=== PATIENT | male | born 1960 | race Caucasian/White ===

== ENCOUNTER 2016-12-20 19:13 | Inpatient (IN) | payer OTHER, MEDICAID ==
[~2016-12-20] VITALS: Ht 165.1 cm; Wt 65.5 kg
[2016-12-20 19:13] VITALS: BP_SYST 128
--- NOTE | 2016-12-20 19:13 | NUR ---
Patient to ER bed 3 to gown for evaluation. Side rails up. Report given to JESSICA ROBB.
--- NOTE | 2016-12-20 19:15 | NUR ---
Pt came by [facility] for fever that started at 1600 today. EMS states that his fever was 102.8 on scene. Pt's cognitive baseline is alert and not oriented to anything. Pt is mechanically vented via tracheostomy. Pt is hot, dry, and normal. Pt has two sores on the L foot. Lung sounds clear bilaterally. Will continue to monitor. No other injuries or mentioned/noted. No distress noted. Addendum: 12/21/16 at 0559 by ASHANTI Pt received 650 mg of tylenol at 1600 by [facility] nurses.
--- NOTE | 2016-12-20 19:35 | NUR ---
# 16 FR In and Out catheter with use of sterile technique. Immediate return of 100 ml dark yellow urine noted. Urine sample collected and sent to lab. Pt tolerated procedure well. Patient unable to toilet self.
--- NOTE | 2016-12-20 19:45 | NUR ---
# 20 gauge angiocath placed to R AC. Use of asceptic technique. Opsite placed over site. Blood return noted. Blood for lab drawn from site. Flushed with 10 cc of normal saline. No evidence of infiltration noted. Patient tolerated well.
--- NOTE | 2016-12-20 20:15 | NUR ---
JOVANNA Henriquez at bedside examining patient.
[2016-12-20] MEDS ORDERED: ACETAMINOPHEN 500 MG TABLET PO ONE (20:30)
[2016-12-20] MEDS ORDERED: NS 1000 ML BAG IV ONE (20:30)
[2016-12-20 20:56] LABS: BILIRUBIN,URINE 1+ (NEGATIVE); BLOOD, URINE NEGATIVE (NEGATIVE); CLARITY/URINE HAZY (CLEAR); COLOR,URINE AMBER (YELLOW); GLUCOSE,URINE NEGATIVE (NEGATIVE); KETONES,URINE TRACE (NEGATIVE); LEUKOCYTE ESTERASE ,URINE 1+ (NEGATIVE); NITRITE, URINE NEGATIVE (NEGATIVE); PROTEIN URINE 2+ (NEGATIVE); UROBILINOGEN,URINE 0.2 (0.2-1.0)
[2016-12-20] MEDS ORDERED: ACETAMINOPHEN 650 MG/20.3 ML UDC GT ONE (21:00)
[2016-12-20 21:01] LABS: BACTERIA,URINE MANY /HPF (None Seen); RBC,URINE 0-3 /HPF (0-3); WBC,URINE 80-100 /HPF (0-3)
[2016-12-20] MEDS ORDERED: ACETAMINOPHEN 650 MG/20.3 ML UDC ONE (21:05)
[2016-12-20 21:19] LABS: HEMATOCRIT 30.6 % (36-54); HEMOGLOBIN 10.2 g/dL (14.0-18.0); MEAN CORPUSCULAR HEMOGLOBIN 31 pg (27-31); MEAN CORPUSCULAR HGB CONC 33 % (32-36); MEAN CORPUSCULAR VOLUME 94 fL (79.0-98.0); PLATELET COUNT (AUTO) 525 K/uL (130-430); RED BLOOD CELL COUNT(AUTO) 3.27 MIL/uL (4.2-6.2); RED CELL DISTRIBUTION WIDTH 15.4 % (9.0-15.0); WHITE BLOOD COUNT (AUTO) 19.3 K/uL (4.8-10.8)
[2016-12-20 21:24] LABS: CREATININE 3.02 mg/dL (0.55-1.30)
[2016-12-20 21:25] LABS: INR 1.2 (0.80-1.20); PROTHROMBIN TIME 13.4 SECS (9.5-12.5)
[2016-12-20 21:42] LABS: BAND % (MANUAL) 5 % (0-6); BASOPHILS % (MANUAL) 0 % (0-2); EOSINOPHILS % (MANUAL) 1 % (0-7); LYMPHOCYTES % (MANUAL) 6 % (20-46); MONOCYTES % (MANUAL) 3 % (0-11)
[2016-12-20 21:44] LABS: ALBUMIN 1.9 g/dL (3.4-4.8)
[2016-12-20 21:48] LABS: POTASSIUM 2.8 mmol/L (3.5-5.1)
--- NOTE | 2016-12-20 21:51 | NUR ---
No adverse reactions noted. Will continue to monitor.
[2016-12-20] MEDS ORDERED: VANCOMYCIN HCL 1,000 MG in NS 250 ML IV ONE (22:00)
[2016-12-20] MEDS ORDERED: PIPERACILLIN/TAZO 3.375 GM in NS 50 ML IV ONE (22:00)
[2016-12-20] MEDS ORDERED: POTASSIUM CHLORIDE 20 MEQ/PKT PACKET GT ONE (22:15)
[2016-12-20] MEDS ORDERED: VANCOMYCIN HCL 1000 MG/VIAL IV ONE (22:28)
[2016-12-20] MEDS ORDERED: PIPERACILLIN/TAZOBACTAM 3.375 GM/VIAL (ZOSYN) IV ONE (22:30)
--- NOTE | 2016-12-20 22:45 | NUR ---
No adverse reactions noted. Will continue to monitor.
[2016-12-20] MEDS ORDERED: NACL 0.9% 1,000 ML IV SCH (22:56)
[2016-12-20] MEDS ORDERED: ACETAMINOPHEN 325 MG TABLET PO PRN (23:00)
[2016-12-20] MEDS ORDERED: ONDANSETRON HCL 4 MG/2 ML VIAL IVP PRN (23:00)
[2016-12-20] MEDS ORDERED: ZOLPIDEM TARTRATE 5 MG TABLET PO PRN (23:15)
[2016-12-20] MEDS ORDERED: POTASSIUM CHLORIDE 20 MEQ TAB.PRT.SR PO ONE (23:15)
[2016-12-20] MEDS ORDERED: BISACODYL 10 MG/SUPPOSITORY RC PRN (23:15)
[2016-12-20] MEDS ORDERED: POTASSIUM CHLORIDE 20 MEQ TAB.PRT.SR PO PRN (23:15)
[2016-12-20] MEDS ORDERED: SIMETHICONE 80 MG TAB.CHEW PO PRN (23:15)
--- NOTE | 2016-12-20 23:15 | NUR ---
No adverse reactions noted. Will continue to monitor.
[2016-12-20] MEDS ORDERED: IPRATROPIUM/ALBUTEROL SULFATE 3 ML AMPUL.NEB INH ONE (23:30)
--- NOTE | 2016-12-20 23:30 | NUR ---
Patient will be admitted to care of Dr. Townsend. Admitted to Telemetry unit. Will go to room 121A. Belongings list completed. Summary report printed. Report will be given at bedside.
[2016-12-21] VITALS (7 sets, daily range): BP systolic 118–139
--- NOTE | 2016-12-21 00:29 | NUR ---
ADMIT NOTE Received pt from ER to the floor with a diagnosis of aspiration pneumonia. Admission process initiated. patient is non verbal, came in on tracheostomy connected to vent. side rails up. lowest bed postion.
--- NOTE | 2016-12-21 01:35 | NUR ---
Pulmo Consultation Paged Reason for consultation: Asp PNA Was consult called: Yes Person who was notified: Hillary Consulting Physician: Dr Wharton Applications Project Manager Applications Project Manager Specialty: Pulmonology Ordered By: Dr Townsend
[2016-12-21 01:39] LABS: PHOSPHORUS 1.8 mg/dL (2.7-4.5); THYROID STIMULATING HORMONE 1.26 uIu/mL (0.34-4.82)
--- NOTE | 2016-12-21 01:50 | NUR ---
initial notes: pt is awake, alert. non verbal eyes open and turn his head when called by name. no sign of pain and distress. pt is admitted for aspiration pneumonia/ vital sign are with normal limit. no fever. pt has tracheostomy with portex 7 connected to [facility]. vent with setting of vt-400, fio2-40% ac-12 and peep-5. pt has ivf bolus ns going to right forearm gauge 20 infusing well. no infiltration. pt has wound on his right buttocks. discoloration on left heel and right big toe. pt has right chest permacath for HD- dressing is CDI. gtube is clamped on place with no residual. gtube side is clean and no erythema. pt came in with out jacob catheter. insert jacob catheter per md order and strict I and O. done aseptically and with yellow cloudy urine return. clean pt and gown change. reposition. kept comfortable. needs attended. mouth care done by cora coles. padded rails up for seizure precaution. will monitor. Addendum: 12/21/16 at 0412 by Giorgio Rowe RN TIDAL [id number]
[2016-12-21 01:58] LABS: FREE T4 (FREE THYROXINE) 0.9 ng/dl (0.8-1.5)
[2016-12-21] MEDS ORDERED: PIPERACILLIN/TAZOBACTAM 2.25 GM VIAL IV ONE (02:11)
--- NOTE | 2016-12-21 04:12 | NUR ---
NOTES: RESTING. NO DISTRESS. TOLERATING MECH VENT. WAKES UP WHEN REPOSITION. TRACHEOSTOMY SUCTION DONE. NEEDS ATTENDED. WILL MONITOR.
[2016-12-21] MEDS ORDERED: TYLL650 PO (05:35)
[2016-12-21] MEDS ORDERED: AMLO10TA88 GT (05:35)
[2016-12-21] MEDS ORDERED: DIPH25CA83 GT (05:48)
[2016-12-21] MEDS ORDERED: CAT.2 GT (05:48)
[2016-12-21] MEDS ORDERED: DULR10 RC (05:48)
[2016-12-21] MEDS ORDERED: ASCO500T20 GT (05:48)
[2016-12-21] MEDS ORDERED: SSNOVOLOG SUBCUT (05:49)
[2016-12-21] MEDS ORDERED: LEVE500T13 GT (05:49)
[2016-12-21] MEDS ORDERED: LISI-600 GT (05:49)
[2016-12-21] MEDS ORDERED: SENN-153 GT (05:49)
[2016-12-21] MEDS ORDERED: POLY17PO4 GT (05:49)
[2016-12-21] MEDS ORDERED: SEVE800T8 GT (05:49)
[2016-12-21] MEDS ORDERED: SSNPH SQ (05:49)
[2016-12-21] MEDS ORDERED: METO50TA7 GT (05:49)
[2016-12-21] MEDS ORDERED: FER300L PO (05:49)
[2016-12-21] MEDS ORDERED: ZIN220 GT (05:49)
[2016-12-21] MEDS: PIPERACILLIN/TAZOBACTAM 2.25 GM in NS 50 ML IV SCH ×3 (05:56→17:35)
--- NOTE | 2016-12-21 06:07 | NUR ---
notes: awake, alert. stable. not distress. mouth care done. reposition. am medication given. bladder scan-20cc. needs attended. call light in reach. will monitor.
[2016-12-21] MEDS: INSULIN REGULAR, HUMAN 100 UNITS/ML, 10 ML VIAL (novoLIN R) SUBCUT PRN ×4 (06:25→20:56)
--- NOTE | 2016-12-21 06:45 | NUR ---
CLOSING: pt is still resting. no acute distress. no pain. temp-99.5. stable v/s. still on vent with same setting. tolerating gtube with 0 residual. jacob catheter properly secure to pt thigh. needs attended. side rails up with padding. pt permacath on right is intact. will give bedside report to am brittney.
[2016-12-21] MEDS: IPRATROPIUM/ALBUTEROL SULFATE 3 ML AMPUL.NEB INH SCH ×5 (08:05→23:49)
[2016-12-21] MEDS: LACTULOSE 20 GM/30 ML UDC GT SCH ×2 (08:07→20:50)
[2016-12-21] MEDS: HEPARIN SODIUM,PORCINE 5000 UNITS/ML VIAL SUBCUT SCH ×2 (08:09→20:53)
--- NOTE | 2016-12-21 08:16 | NUR ---
initial notes: pt is awake, alert. non verbal eyes open and turn his head when called by name. no sign of pain and distress. vital sign are with normal limit. no fever. pt has tracheostomy with portex 7 connected to [facility]. vent with setting of vt-400, fio2-40% ac-12 and peep. gtube is clamped on place with no residual. gtube side is clean and no erythema. jacob catheter for strict I and O with yellow cloudy urine.padded rails up for seizure precaution. will continue monitoring.
[2016-12-21] MEDS ORDERED: DOCUSATE SODIUM 100 MG CAPSULE PO SCH (09:00)
[2016-12-21] MEDS ORDERED: BISACODYL 10 MG/SUPPOSITORY RC PRN (09:15)
[2016-12-21] MEDS ORDERED: cloNIDine HCL 0.2 MG TABLET GT SCH (09:15)
[2016-12-21] MEDS ORDERED: POLYETHYLENE GLYCOL 3350, 17 GM/ POWD.PACK GT PRN (09:15)
[2016-12-21] MEDS ORDERED: SENNOSIDES 8.6 MG TABLET GT PRN (09:15)
--- NOTE | 2016-12-21 09:38 | NUR ---
Consult was called Re:[facility] spoke with Mel from exchange Dr Handy is brood station manager for Dr Mcbride.
--- NOTE | 2016-12-21 09:40 | NUR ---
Nutrition Update Trung Scale 17 noted. Pt admitted for aspiration pneumonia. Diet: Diabetisource AC at 20 ml/hr, Free Water Flush: 200 ml q6 via GT BMI: 21.8 kg/m2 RD to follow per nutrition care standards.
--- NOTE | 2016-12-21 09:45 | NUR ---
MD DARELL PINEDA KIDNEY DR. LOZOYA AT THIS TIME AND HE SAY HE WILL SEE PT TODAY AND WILL ORDER DIALYSIS.
--- NOTE | 2016-12-21 09:57 | NUR ---
G/TUBE G/TUBE IS HOLD KNOW FOR U/S OF ABD.
--- NOTE | 2016-12-21 09:58 | NUR ---
Feliciano GOYAL LUNG IS MAKE ROUND AT THIS TIME ALL UP DATE IS GIVEN WE WILL FOLLOW UP ORDERS.
[2016-12-21] MEDS: ACETAMINOPHEN 650 MG/20.3 ML UDC GT PRN ×2 (11:40→17:45)
--- NOTE | 2016-12-21 13:00 | NUR ---
JESSICA GOYAL PT ON BED ALERT OX4, NO COMPLINE OF PAIN OR DISCOMFORT AT THIS TIME. Addendum: 12/21/16 at 1901 by Kathi Angulo RN WRONG PT
--- NOTE | 2016-12-21 15:00 | NUR ---
JESSICA ROUND PT ON BED ALERT OX4 NO SOB,OR DISTRESS NOTED AT THIS TIME. Addendum: 12/21/16 at 1901 by Kathi Angulo RN WRONG PT
--- NOTE | 2016-12-21 15:47 | NUR ---
Dietitian Recommendations * If/when medically appropriate, consider Diabetisource AC at 40 ml/hr (goal rate), Prosource daily, Free Water Flush: 200 ml q6 via GT Provides: 1212 kcal/day, 73 gm protein/day, and 1585 ml free water/day Meets: 92% of lower end of estimated caloric needs and and 103% of lower end of estimated protein needs LP, RD Please refer to Nutrition Assessment for details.
--- NOTE | 2016-12-21 18:56 | NUR ---
end of shift note Patient is resting in bed. no s/of SOB or distress noted at this time.call light is within reach and bed is in low position for Safety. Will endorse care to the night nurse.
--- NOTE | 2016-12-21 19:55 | NUR ---
Blood Culture Result Per Lab, blood culture drawn on 12/20/16 is positive for gram positive cocci in cluster. ID and Susceptibilities results are pending. Pt is currently on IV Zosyn. Will follow up with .
--- NOTE | 2016-12-21 20:00 | NUR ---
Initial PM Note Pt was received lying in bed awake and non-verbal. Pt has Tracheostomy #[address] and connected to Mechanical Ventilator with settings of AC 12, TV 450, FIO2 40% and PEEP 5. Pt is tolerating Vent settings well and no respiratory distress noted. No seizure activity noted and side rails are padded. Skin is warm and dry to touch. No signs or symptoms of hypoglycemia or hyperglycemia noted. GT Feeding of Diabetisource AC is infusing well with GT residual of 5ml. HOB is elevated 45 degrees to prevent aspiration. Ann cath to gravity drainage is patent with small amount of yellowish urine. Saline lock in RFA is patent and without any signs of infiltration. Rt chest Hemodialysis Permacath noted with the dressing dry and intact.
--- NOTE | 2016-12-21 20:45 | NUR ---
Hemodialysis and IV Vancomycin Noted new orders from Dr. Albert Handy for IV Vancomycin tonight and Hemodialysis tomorrow. Will print IV Vancomycin order for Occupational Therapist Home Based to obtain the medication from Pharmacy. Consent is needed for Hemodialysis and pt is unable to sign. Will follow up with pt's POA for consent.
[2016-12-21] MEDS: FERROUS SULFATE 300 MG/5 ML UDC PO SCH (20:50)
[2016-12-21] MEDS: ASCORBIC ACID 500 MG TABLET GT SCH (20:51)
[2016-12-21] MEDS: levETIRAcetam 500 MG TABLET GT SCH (20:51)
[2016-12-21] MEDS: NPH, HUMAN INSULIN ISOPHANE 100 UNITS/ ML 10 ML VIAL SQ SCH (20:54)
[2016-12-21] MEDS ORDERED: VANCOMYCIN HCL 1 GM/NS PREMIX 250 ML IV ONE (22:00)
--- NOTE | 2016-12-21 22:00 | NUR ---
Rounds Pt is resting quietly in bed at this time. Pt is tolerating Vent settings and GT Feeding. HOB remains elevated at 45 degrees. No seizure activity noted.
[2016-12-21] MEDS ORDERED: VANCOMYCIN HCL 1000 MG/VIAL IV ONE (22:26)
--- NOTE | 2016-12-22 | NUR ---
Rounds Pt is sleeping without any distress or seizure activity noted. Pt is tolerating GT Feeding and Vent settings well. Fall and safety precautions are in place.
[2016-12-22 00:14] VITALS: BP_SYST 127
[2016-12-22] MEDS: PIPERACILLIN/TAZOBACTAM 2.25 GM in NS 50 ML IV SCH ×2 (01:15→06:01)
--- NOTE | 2016-12-22 02:00 | NUR ---
Rounds Pt is sleeping comfortably in bed and no respiratory distress noted. Pt is tolerating GT Feeding and Vent settings well. Fall and safety precautions are in place.
[2016-12-22] MEDS: IPRATROPIUM/ALBUTEROL SULFATE 3 ML AMPUL.NEB INH SCH ×6 (03:51→23:04)
--- NOTE | 2016-12-22 04:00 | NUR ---
Rounds Pt is sleeping quietly in bed at this time. Pt is tolerating Vent settings and GT Feeding. HOB remains elevated at 45 degrees. No seizure activity noted.
--- NOTE | 2016-12-22 06:00 | NUR ---
G Tube Site Dressing Change G Tube site dressing change done. No leakage noted at the site. G Tube site was cleansed with normal saline and dry drain sponge dressing applied.
[2016-12-22 06:04] VITALS: BP_SYST 137
[2016-12-22 06:38] LABS: BASOPHILS # (AUTO) 0.1 K/uL (0.0-0.2); BASOPHILS % (AUTO) 0.3 % (0.0-2.0); EOSINOPHILS # (AUTO) 0.2 K/uL (0.0-0.4); HEMATOCRIT 27.3 % (36-54); LYMPHOCYTES % (AUTO) 5.1 % (20.5-51.5); MEAN CORPUSCULAR HEMOGLOBIN 31 pg (27-31); MEAN CORPUSCULAR HGB CONC 33 % (32-36); MEAN CORPUSCULAR VOLUME 93 fL (79.0-98.0); MONOCYTES % (AUTO) 4.9 % (1.7-9.3); NEUTROPHILS # (AUTO) 17.4 K/uL (1.8-7.7); PLATELET COUNT (AUTO) 519 K/uL (130-430); RED BLOOD CELL COUNT(AUTO) 2.93 MIL/uL (4.2-6.2); RED CELL DISTRIBUTION WIDTH 15.6 % (9.0-15.0); WHITE BLOOD COUNT (AUTO) 19.6 K/uL (4.8-10.8)
--- NOTE | 2016-12-22 06:46 | NUR ---
Closing Note Pt is awake and resting comfortably in bed. All pt's needs were attended to. No fall or injury noted this shift. No respiratory distress noted at this time. Pt is tolerating Vent settings and G Tube Feeding well. Will endorse to day shift nurse.
[2016-12-22 06:51] LABS: NEUTROPHILS % (AUTO) 88.7 % (40.0-70.0)
[2016-12-22 06:58] LABS: ALBUMIN 1.7 g/dL (3.4-4.8); CALCIUM 8.5 mg/dL (8.4-11.0); CREATININE 3.72 mg/dL (0.55-1.30); PHOSPHORUS 2.7 mg/dL (2.7-4.5); POTASSIUM 3.8 mmol/L (3.5-5.1); TOTAL BILIRUBIN 1.5 mg/dL (0.0-1.0)
--- NOTE | 2016-12-22 07:15 | NUR ---
Blood Culture Result Dr. Townsend was informed of blood culture result that showed gram positive cocci in clusters. He was also informed Dr. Handy ordered IV Vancomycin x1, which was administered last night. No new orders given by Dr. Bledsoe.
--- NOTE | 2016-12-22 07:45 | NUR ---
Consent for Hemodialysis RNs Silvia and Hans attempted to reach pt's POA for telephonic Hemodialysis consent since pt is unable to sign, but got a voice mail. RN Hans left a voice mail message for a call back. Roll Up Operator Nivia was informed of the Hemodialysis' consent status. Nivia advised giving her the Hemodialysis order after the consent has been signed.
--- NOTE | 2016-12-22 08:10 | NUR ---
AM Rounds Patient resting in bed, awake, alert and oriented x1, nonverbal, no signs of pain, assessment complete. Patient is on a trach to vent, AC 12, FIO2 40%, TV 450, PEEP 5, tolerating well, trach was suctioned with minimal secretions. ABG was done by the RT this morning, results pending. G Tube in place, with tube feeding, patient is tolerating well, aspiration precautions in place. IV site is patent and infusing well. Ann catheter in place draining to gravity. Patient is to have hemodialysis today, called POA for consent, no answer, voicemail was left for call back, will follow up as needed. Bed in lowest position, three side rails up, bed alarm on, bed close to nurse's station, fall, aspiration and seizure precautions in place.
[2016-12-22 08:12] VITALS: BP_SYST 137
--- NOTE | 2016-12-22 09:14 | NUR ---
Dr. Lozano S/w Dr. Lozano regarding sepsis protocol, no new orders at this time.
[2016-12-22] MEDS: LACTULOSE 20 GM/30 ML UDC GT SCH ×2 (09:41→22:04)
[2016-12-22] MEDS: ACETAMINOPHEN 650 MG/20.3 ML UDC GT PRN (09:41)
[2016-12-22] MEDS: FERROUS SULFATE 300 MG/5 ML UDC PO SCH ×2 (09:42→22:04)
[2016-12-22] MEDS: levETIRAcetam 500 MG TABLET GT SCH ×2 (09:42→22:04)
[2016-12-22] MEDS: amLODIPine BESYLATE 10 MG TABLET GT SCH (09:42)
[2016-12-22] MEDS: SEVELAMER HCL 800 MG TABLET GT SCH ×3 (09:43→17:30)
[2016-12-22] MEDS: LISINOPRIL 20 MG TABLET GT SCH (09:43)
[2016-12-22] MEDS: HEPARIN SODIUM,PORCINE 5000 UNITS/ML VIAL SUBCUT SCH ×2 (09:43→21:00)
[2016-12-22] MEDS: ASCORBIC ACID 500 MG TABLET GT SCH ×2 (09:43→22:04)
--- NOTE | 2016-12-22 09:45 | NUR ---
RN Rounds/Medication Patient resting in bed, awake, no signs of pain, educated on medications and potential side effects, G TUBE in place, no residual output at this time, tolerated medication administration well at this time. Tylenol also administered via G TUBE for temp of 100.4, will continue to monitor, cooling measures also provided. Will continue to monitor, bed in lowest position, three side rails up, bed alarm on, bed close to nurse's station, fall, aspiration and isolation precautions in place.
[2016-12-22] MEDS: NPH, HUMAN INSULIN ISOPHANE 100 UNITS/ ML 10 ML VIAL SQ SCH ×2 (09:46→22:03)
[2016-12-22 11:15] VITALS: BP_SYST 132
[2016-12-22] MEDS: INSULIN REGULAR, HUMAN 100 UNITS/ML, 10 ML VIAL (novoLIN R) SUBCUT PRN ×2 (11:46→22:01)
--- NOTE | 2016-12-22 11:46 | NUR ---
RN Rounds/Blood Glucose Patient resting in bed, awake, no signs of distress, no signs of pain. Blood glucose checked and insulin administered per MD orders. Bed in lowest position, three side rails up, bed alarm on, bed close to nurse's station, fall, aspiration and isolation precautions in place. Addendum: 12/22/16 at 1323 by Hans Bowser RN Temp now 100.0, cooling measures applied.
[2016-12-22 12:10] VITALS: BP_SYST 132
--- NOTE | 2016-12-22 12:20 | NUR ---
CONSULTATION PAGED REASON FOR CONSULTATION: HEPATOSPLENOMEGALY, ELEVATED BILI WAS CONSULT CALLED?: Y PERSON WHO WAS NOTIFIED: NAEEM CONSULTING PHYSICIAN: ANNE OLMSTEAD LEAF COVERER SPECIALTY: GASTROENTEROLOGY LEAF COVERER PHONE NUMBER: [phone] REQUESTING PHYSICIAN: SUSHIL RO
--- NOTE | 2016-12-22 12:25 | NUR ---
S/W Dr. Townsend regarding hemodialysis consent, unable to reach POA and the patient needs documentation that the dialysis is urgent, Dr. Townsend to follow up. Addendum: 12/22/16 at 1428 by Hans Bowser RN Order for Hemodialysis given to the assistant warehouse manager at 1230, assistant warehouse manager to follow up.
--- NOTE | 2016-12-22 14:24 | NUR ---
RN Rounds Patient resting in bed, eyes closed, breathing is even and unlabored, no signs of distress, bed in lowest position, three side rails up, bed alarm on, call light within reach, fall, isolation and aspiration precautions in place.
--- NOTE | 2016-12-22 15:54 | NUR ---
Wound care note 1) Right great toe Dry scab, no drainage, no odor Open to air 2) Right heel Blanchable redness, no open skin Floating and elevating the heel. 3)Right anterior lower leg Small, multiple dry scabs, intact, no odor, no drainage Open to air 4) Left heel Large dry scab, no drainage, no odor Open to air, floating and elevating the heel. 5) Right buttock 5 small skin tears. Non-intact skin. 100% red wound bed. Cleansed with normal saline and patted dry. Hydrogel applied to wound beds. Large sacral foam dressing over the right buttock. Turning and repositioning the patient every two hours and as needed. Dietary and wound care consults pending. Floating and elevating bilateral lower extremities/heels.
[2016-12-22 15:57] VITALS: BP_SYST 131
[2016-12-22] MEDS ORDERED: DEXTROSE 50% JECT 50 ML DISP.SYRIN IVP ONE (17:30)
--- NOTE | 2016-12-22 17:43 | NUR ---
Blood Glucose Assessed: 58, apple juice x1 given via G TUBE, no residual output at this time. Reassessed: 56, order for D50 IV push x1 received and given at this time. Will reassess blood glucose again.
--- NOTE | 2016-12-22 18:08 | NUR ---
Blood Glucose Reassessed 147 at this time after D50 IVP x1.
--- NOTE | 2016-12-22 18:26 | NUR ---
Closing note Patient resting in bed, awake, no signs of pain, no signs of distress, all needs met. Bed in lowest position, three side rails up, bed alarm on, bed close to nurse's station, fall, aspiration, seizure and isolation precautions in place. Will endorse report to NOC shift nurse.
--- NOTE | 2016-12-22 19:50 | NUR ---
ROUNDS PATIENT ON ONGOING HEMODIALYSIS AT THIS TIME, VITALS STABLE. NON VERBAL, ON TRACH TO VENT, SECRETIONS SUCTIONED NEEDED. ASSESSMENT DONE AND DOCUMENTED. SEE FLOWSHEET. NEEDS ATTENDED TO. SAFETY AND FALL PRECAUTION MEASURES IN PLACED.BED IN LOWEST POSITION. BED ALARM ON. WILL CONTINUE TO MONITOR.
--- NOTE | 2016-12-22 21:40 | NUR ---
MEDICATION DUE MEDICATIONS GIVEN ORDERED PER G TUBE, TOLERATED WELL. WILL CONTINUE TO MONITOR.
[2016-12-22] MEDS: MUPIROCIN 2% TOPICAL OINTMENT 22 GM TP SCH (22:05)
[2016-12-23] VITALS (7 sets, daily range): BP systolic 117–143
--- NOTE | 2016-12-23 | NUR ---
PATIENT RESTING: Patient resting quietly. No acute distress noted. Vital signs within normal range.
--- NOTE | 2016-12-23 02:15 | NUR ---
PATIENT RESTING: Patient resting quietly. No acute distress noted. Vital signs within normal range.
[2016-12-23] MEDS: IPRATROPIUM/ALBUTEROL SULFATE 3 ML AMPUL.NEB INH SCH ×5 (03:29→23:29)
--- NOTE | 2016-12-23 04:15 | NUR ---
PATIENT RESTING: Patient resting quietly. No acute distress noted. Vital signs within normal range.
[2016-12-23 06:17] LABS: BASOPHILS # (AUTO) 0.1 K/uL (0.0-0.2); BASOPHILS % (AUTO) 0.4 % (0.0-2.0); EOSINOPHILS # (AUTO) 0.7 K/uL (0.0-0.4); EOSINOPHILS % (AUTO) 4.2 % (0.0-4.0); HEMATOCRIT 25.5 % (36-54); HEMOGLOBIN 8.4 g/dL (14.0-18.0); LYMPHOCYTES # (AUTO) 0.8 K/uL (1.0-5.5); LYMPHOCYTES % (AUTO) 5.2 % (20.5-51.5); MEAN CORPUSCULAR HEMOGLOBIN 30 pg (27-31); MEAN CORPUSCULAR HGB CONC 33 % (32-36); MEAN CORPUSCULAR VOLUME 92 fL (79.0-98.0); MONOCYTES # (AUTO) 0.8 K/uL (0.0-1.0); MONOCYTES % (AUTO) 4.9 % (1.7-9.3); NEUTROPHILS # (AUTO) 13.6 K/uL (1.8-7.7); NEUTROPHILS % (AUTO) 85.3 % (40.0-70.0); PLATELET COUNT (AUTO) 537 K/uL (130-430); RED BLOOD CELL COUNT(AUTO) 2.77 MIL/uL (4.2-6.2); RED CELL DISTRIBUTION WIDTH 14.9 % (9.0-15.0)
--- NOTE | 2016-12-23 06:35 | NUR ---
CLOSING NOTES PATIENT RESTING COMFORTABLY AT THIS TIME, VITALS STABLE. ACCU CHECK DONE, BLOOD SUGAR 92 WITH NO INSULIN COVERAGE PER SLIDING SCALE. ALL NEEDS ATTENDED TO. SAFETY AND FALL MEASURES MAINTAINED. WILL CONTINUE TO MONITOR.
[2016-12-23 07:02] LABS: ALBUMIN 1.4 g/dL (3.4-4.8); CALCIUM 8.4 mg/dL (8.4-11.0); CREATININE 2.2 mg/dL (0.55-1.30); PHOSPHORUS 2.6 mg/dL (2.7-4.5); TOTAL BILIRUBIN 1.1 mg/dL (0.0-1.0)
[2016-12-23 07:24] LABS: POTASSIUM 2.9 mmol/L (3.5-5.1)
--- NOTE | 2016-12-23 07:30 | NUR ---
AM Rounds Patient resting in bed, awake, alert and oriented x1, nonverbal, no signs of pain, assessment complete. Patient is on a trach to vent, AC 12, FIO2 40%, TV 450, PEEP 5, tolerating well, trach was suctioned with minimal secretions. G Tube in place, with tube feeding, patient is tolerating well, aspiration precautions in place. IV site is patent and infusing well. Ann catheter in place draining to gravity. Temperature is 101.6 at this time, PUBLICATION SPECIALIST assisting patient to get cleaned and repositioned, cooling measures applied, will follow up with Tylenol via GT. Bed in lowest position, three side rails up, bed alarm on, bed close to nurse's station, fall, aspiration , isolation and seizure precautions in place.
[2016-12-23] MEDS: NPH, HUMAN INSULIN ISOPHANE 100 UNITS/ ML 10 ML VIAL SQ SCH (09:00)
--- NOTE | 2016-12-23 09:02 | NUR ---
Nancy Wright critical value K 2.90
[2016-12-23] MEDS ORDERED: POTASSIUM CHLORIDE 20 MEQ TAB.PRT.SR GT ONE (09:30)
[2016-12-23] MEDS: FERROUS SULFATE 300 MG/5 ML UDC PO SCH ×2 (09:37→22:20)
[2016-12-23] MEDS: LACTULOSE 20 GM/30 ML UDC GT SCH ×2 (09:38→22:20)
[2016-12-23] MEDS: SEVELAMER HCL 800 MG TABLET GT SCH ×3 (09:38→17:19)
[2016-12-23] MEDS: ACETAMINOPHEN 650 MG/20.3 ML UDC GT PRN (09:38)
[2016-12-23] MEDS: levETIRAcetam 500 MG TABLET GT SCH ×2 (09:39→22:21)
[2016-12-23] MEDS: ASCORBIC ACID 500 MG TABLET GT SCH ×2 (09:39→22:21)
[2016-12-23] MEDS: LISINOPRIL 20 MG TABLET GT SCH (09:39)
[2016-12-23] MEDS: amLODIPine BESYLATE 10 MG TABLET GT SCH (09:39)
[2016-12-23] MEDS: HEPARIN SODIUM,PORCINE 5000 UNITS/ML VIAL SUBCUT SCH ×2 (09:40→22:25)
--- NOTE | 2016-12-23 09:40 | NUR ---
RN Rounds/Medication Patient resting in bed, awake, no signs of pain, educated on medications and potential side effects, G TUBE in place, no residual output at this time, tolerated medication administration well at this time. Tylenol also administered via G TUBE for temp of 101.6, will continue to monitor, cooling measures also provided. Will continue to monitor, bed in lowest position, three side rails up, bed alarm on, bed close to nurse's station, fall, aspiration, seizure and isolation precautions in place.
[2016-12-23] MEDS: MUPIROCIN 2% TOPICAL OINTMENT 22 GM TP SCH ×2 (10:02→22:23)
--- NOTE | 2016-12-23 10:04 | NUR ---
S/W Dr. Townsend Updates given, potassium replacement orders received, informed regarding fevers, will follow up with any new orders.
--- NOTE | 2016-12-23 12:00 | NUR ---
Rounds I checked patients blood sugar (136) and patient was moved to a low air mattress. Patient also had a bowel movement and was cleaned and changed.
[2016-12-23] MEDS ORDERED: cloNIDine HCL 0.2 MG TABLET GT PRN (12:29)
[2016-12-23 14:00] LABS: T4 (THYROXINE) 4.4 ug/dL (4.5-12.0)
[2016-12-23 14:15] LABS: HEMOGLOBIN A1C 7.6 % (4.8-5.6)
--- NOTE | 2016-12-23 14:22 | NUR ---
S/w POA regarding consent for dialysis, stated that he will get in touch with the medical staff at [facility] so that they can fax over medical consent, will follow up as needed.
--- NOTE | 2016-12-23 14:30 | NUR ---
RN Rounds patient resting in bed, awake, no signs of pain, no signs of distress, aspiration, fall, seizure and isolation precautions in place, bed in lowest position, three side rails up, bed alarm on, bed close to nurse's station, will continue to monitor.
--- NOTE | 2016-12-23 15:48 | NUR ---
S/W [facility] Bread Jockey got information for the patient and she will page their medical staff and if they ok the consent she will fax over the consent, will follow up as needed.
--- NOTE | 2016-12-23 16:09 | NUR ---
PT off Unit The patient is off the unit and in stable condition with IV fluids held until return. Addendum: 12/23/16 at 1610 by Angela De La Cruz RN Wrong Patient
--- NOTE | 2016-12-23 16:18 | NUR ---
Wound care note 1) Right great toe Dry scab, no drainage, no odor Open to air 2) Right heel Blanchable redness, no open skin Floating and elevating the heel. 3)Right anterior lower leg Small, multiple dry scabs, intact, no odor, no drainage Open to air. 4) Left heel Large dry scab, no drainage, no odor Open to air, floating and elevating the heel. 5) Right buttock 5 small skin tears. Non-intact skin. 100% red wound bed. Cleansed with normal saline and patted dry. Barrier cream applied on jocelin wounds and over scrotal area. Large sacral foam dressing over the right buttock. Turning and repositioning the patient every two hours and as needed. Dietary and wound care consults pending. Floating and elevating bilateral lower extremities/heels.
--- NOTE | 2016-12-23 16:22 | NUR ---
Hemodialysis consent received via fax from [facility].
--- NOTE | 2016-12-23 17:30 | NUR ---
RN Rounds/Blood glucose patient resting in bed, no signs of pain, no signs of distress, evening medication administered via G TUBE, no residual output, blood glucose assessed, no insulin coverage needed per MD orders. Bed in lowest position, three side rails up, bed alarm on, fall, aspiration, seizure and isolation precautions in place.
--- NOTE | 2016-12-23 18:22 | NUR ---
Closing Note Patient resting in bed, awake, no signs of distress, no signs of pain. All needs met, will endorse report to NOC shift nurse, bed in lowest position, three side rails up, bed alarm on, bed close to nurse's station, fall, aspiration, seizure and isolation precautions.
--- NOTE | 2016-12-23 19:40 | NUR ---
Initial note patient in bed with eyes open, alert nonverbal. Stable not in distress. Ventilator connected. IV on RA. Seizure precautions in place. FC CYU. Bed lowest position. Pt incontinent of stool this time. Cleaned and changed patient. Continue to monitor.
[2016-12-23 21:51] LABS: TOTAL IRON BIND. CAPACITY 103 ug/dL (250-450)
[2016-12-23] MEDS ORDERED: VANCOMYCIN HCL 750 MG in NS 250 ML IV SCH (22:00)
--- NOTE | 2016-12-23 22:25 | NUR ---
Medication note Patient medication administered. Pt IV patent. Pt in bed, alert and awake, still nonverbal. No adverse effects noted. Safety measures in place. Seizure precaution in place. Bed lowest position. Continue to monitor.
[2016-12-23] MEDS: INSULIN REGULAR, HUMAN 100 UNITS/ML, 10 ML VIAL (novoLIN R) SUBCUT PRN (22:48)
[2016-12-24] VITALS (9 sets, daily range): BP systolic 119–134
--- NOTE | 2016-12-24 00:25 | NUR ---
Rounds patient in bed with eyes closed. No signs of respiratory distress noted. Seizure precautions in place. Bed in lowest posiiton. Continue to monitor
--- NOTE | 2016-12-24 02:08 | NUR ---
rounds pt in bed sleeping. no signs of acute distress or SOB noted. Fall and seizure precaution in place. Will continue to monitor
[2016-12-24] MEDS: IPRATROPIUM/ALBUTEROL SULFATE 3 ML AMPUL.NEB INH SCH ×6 (03:25→23:30)
--- NOTE | 2016-12-24 04:11 | NUR ---
Rounds Pt in bed sleeping. Vital signs taken all WNLs. Pt repositioned. Pt still on ventilator. G tube and IV in place. Pt safety measures upheld. Bed in lowest position, seizure and fall precautions in place. Pt chart reviewed and updates made on SBAR form. Continues to monitor.
--- NOTE | 2016-12-24 05:55 | NUR ---
Rounds Pt repositioned to left side. Pt diabetsource bag and tubings changed and flushed as ordered. Safety precautions in place. Continue to monitor
[2016-12-24] MEDS: INSULIN REGULAR, HUMAN 100 UNITS/ML, 10 ML VIAL (novoLIN R) SUBCUT PRN ×4 (06:23→22:00)
--- NOTE | 2016-12-24 06:27 | NUR ---
Closing note Pt slept comfortably this shift. Repositioned as ordered every two hours. G-tube feeding intact, with minimal residue of 5ml at start of shift. Pt continues on vent, no change in settings this shift. Mouth care carried out with each scheduled vent assessment. FC intact and flowing CYU. Accu check done as scheduled with appropriate insulin coverage. Towards end of shift Pt pulled out IV catheter, on left hand. new IV started. Bed rails padded . No seizure activity noted this shift. Fall and contact precautions in place this shift. Will pass report to next shift. Addendum: 12/24/16 at 0646 by Vicki Wells RN closing note IV Pt pulled IV towards end of shift. New IV 22 G started right FA
[2016-12-24 06:46] LABS: HEMATOCRIT 26.2 % (36-54); MEAN CORPUSCULAR HEMOGLOBIN 30 pg (27-31); MEAN CORPUSCULAR HGB CONC 32 % (32-36); MEAN CORPUSCULAR VOLUME 93 fL (79.0-98.0); PLATELET COUNT (AUTO) 632 K/uL (130-430); RED BLOOD CELL COUNT(AUTO) 2.81 MIL/uL (4.2-6.2); RED CELL DISTRIBUTION WIDTH 15.6 % (9.0-15.0); WHITE BLOOD COUNT (AUTO) 13.2 K/uL (4.8-10.8)
[2016-12-24 07:01] LABS: ALBUMIN 1.5 g/dL (3.4-4.8); CALCIUM 8.6 mg/dL (8.4-11.0); CREATININE 2.83 mg/dL (0.55-1.30); PHOSPHORUS 4.1 mg/dL (2.7-4.5); POTASSIUM 3.6 mmol/L (3.5-5.1); TOTAL BILIRUBIN 1.1 mg/dL (0.0-1.0)
[2016-12-24 07:15] LABS: HEMOGLOBIN 8.4 g/dL (14.0-18.0)
--- NOTE | 2016-12-24 08:08 | NUR ---
OPENING NOTE RECEIVED REPORT FROM NIGHT RN. PT IS RESTING COMFORTABLY IN BED. NO S/S OF DISTRESS OR SOB. PT IS AWAKE BUT NOT ALERT AND NONVERBAL. VITAL SIGNS WITHIN NORMAL LIMITS. ASSESSMENT COMPLETE. IV IS PATENT AND INFUSING. G-TUBE FEEDINGS IN PLACE. NO LEAKING OR DRAINAGE AT GTUBE SITE. PT ON VENTILATOR. SETTINGS ARE FIO2 40% TV 450 PEEP 5 AC 12. PT IS TOLERATING SETTINGS. EQUAL CHEST RISE NOTED. SEIZURE PRECAUTIONS IN PLACE. PT IN ISOLATION PRECAUTIONS. SAFETY PRECAUTIONS IN PLACE, BED IN LOWEST POSITION. WILL CONTINUE TO MONITOR.
--- NOTE | 2016-12-24 08:50 | NUR ---
CONSULTATION PAGED REASON FOR CONSULTATION: GRAM POS COCCI BACTEREMIA WAS CONSULT CALLED?: Y PERSON WHO WAS NOTIFIED: IMAN CONSULTING PHYSICIAN: MALIK FIGUEROA CUSTOMER SECURITY CLERK SPECIALTY: INFECTIOUS DISEASE CUSTOMER SECURITY CLERK PHONE NUMBER: [phone] REQUESTING PHYSICIAN: KIMBERLYN GAMING
--- NOTE | 2016-12-24 08:54 | NUR ---
CONSULTATION PAGED REASON FOR CONSULTATION: HEPATOSPLEENOMEGALY WAS CONSULT CALLED?: Y PERSON WHO WAS NOTIFIED: SUMIT CONSULTING PHYSICIAN: DAVID COONEY LOGISTICS PLANNING MANAGER SPECIALTY: INTERNAL MEDICINE LOGISTICS PLANNING MANAGER PHONE NUMBER: [phone] REQUESTING PHYSICIAN: MOUSTAPHA GEORGE JHUJHAR
[2016-12-24] MEDS: LISINOPRIL 20 MG TABLET GT SCH (09:00)
[2016-12-24] MEDS: HEPARIN SODIUM,PORCINE 5000 UNITS/ML VIAL SUBCUT SCH ×3 (09:00→22:03)
[2016-12-24] MEDS: amLODIPine BESYLATE 10 MG TABLET GT SCH (09:00)
[2016-12-24] MEDS: LACTULOSE 20 GM/30 ML UDC GT SCH ×2 (09:15→21:59)
[2016-12-24] MEDS: ASCORBIC ACID 500 MG TABLET GT SCH ×2 (09:16→22:45)
[2016-12-24] MEDS: FERROUS SULFATE 300 MG/5 ML UDC PO SCH ×2 (09:16→21:58)
[2016-12-24] MEDS: levETIRAcetam 500 MG TABLET GT SCH ×2 (09:16→21:59)
[2016-12-24] MEDS: MUPIROCIN 2% TOPICAL OINTMENT 22 GM TP SCH ×2 (09:17→22:45)
[2016-12-24] MEDS: SEVELAMER HCL 800 MG TABLET GT SCH ×3 (09:19→17:10)
--- NOTE | 2016-12-24 10:00 | NUR ---
ROUNDS PT RECEIVING DIALYSIS. MEDS GIVEN. PT IN NO DISTRESS OR SOB. BED IN LOWEST POSITION. WILL CONTINUE TO MONITOR CLOSELY.
[2016-12-24 10:16] LABS: HEPATITIS B SURFACE AG Negative (Negative); HEPATITIS C VIRUS AB <0.1 s/co ratio (0.0-0.9)
[2016-12-24 10:25] LABS: ATYPICAL LYMPHOCYTES % 0 % (0-0); BAND % (MANUAL) 2 % (0-6); BASOPHILS % (MANUAL) 0 % (0-2); EOSINOPHILS % (MANUAL) 4 % (0-7); LYMPHOCYTES % (MANUAL) 11 % (20-46); MONOCYTES % (MANUAL) 7 % (0-11); MYELOCYTES % 2 % (0-0)
--- NOTE | 2016-12-24 10:34 | NUR ---
DISCHARGE PLANNING Faxed SNF referral to [phone]. Spoke with Gerardo in admitting who was made aware of patient currently [facility] status. DCP will follow up on [facility] bed availability. Addendum: 12/24/16 at 1414 by Sylvia Palumbo DP spoke with Gerardo in admitting at [facility] patient assigned to [facility] room 111A RN to report [phone] bed available anytime. Any ambulance can be arranged. Placed transportation packet in nurses station. Pending discharge order.
--- NOTE | 2016-12-24 11:58 | NUR ---
ROUNDS PT CURRENTLY ON DIALYSIS. NEW ORDER FOR ROCEPHIN TO BE ADMINISTERED. PT HAS NO SIGNS OF DISTRESS OR SOB. BED IN LOWEST POSITION. WILL CONTINUE TO MONITOR.
[2016-12-24] MEDS: cefTRIAXone 1 GM in D5W 50 ML IV SCH (12:51)
--- NOTE | 2016-12-24 13:41 | NUR ---
ROUNDS PT CURRENTLY RESTING IN BED. MEDS GIVEN, CURRENTLY RECEIVING ROCEPHIN. PT HAD PRODUCTIVE COUGH, TRACH SUCTIONED. PT IN NO DISTRESS OR SOB. BED IN LOWEST POSITION. WILL CONTINUE TO MONITOR.
--- NOTE | 2016-12-24 14:34 | NUR ---
Nutrition F/U Admitting Diagnosis Aspiration pneumonia Reviewed Pertinent Medical/Surgical Hx Medical Record Reviewed Pertinent Medical/Surgical Hx Patient Medical History Comment: DM, HTN, ESRD w/ HD, chronic respiratory failure, CVA, muscle weakness, unsteady gait per MD notes Subjective Information Pt seen resting in bed at time of RD visit concluding a procedure. Pt seen +trach to vent, TF seen infusing at 20ml/hr. Pt appeared thin for short stature. Pt unable to engage in RD verbal interview. Per EMR, TF Intakes: 480 mL 12/23/16 Output: 150mL; BM x2 (12/23/16) Pt is not yet meeting optimal nutritional needs. Current TF regimen provides 576 kcal/day, 29 gm protein/day, and 1193 ml free water/day. This meets 44% of lower end of estimated caloric needs and 41% of lower end of estimated protein needs. Pt is not appropriate for nutrition education. Current Diet Order/Nutrition Support Diabetisource AC at 20 ml/hr, Free Water Flush: 200 ml q6h via GT Patient/Significant Other Unable To Verbalize Education Provided Not Indicated Pertinent Medications Reviewed Pertinent Labs Reviewed Height (Feet) 5 feet Height (Inches) 5.00 inches Weight (Pounds) 130 pounds Weight (Calculated Kilograms) 58.182391 kilograms Patient Weight 58.967 kg Body Mass Index 21.63 kg/m2 %IBW 95 [place]/Adjusted Body Weight IBW: 136 lb, 62 kg Weight Status Appropriate Skin Integrity Comment: Trung scale: 13; per nursing notes, anterior lower R leg: scratech; L heel: discoloration; medial R toe: discoloration; R buttocks: wound Estimated Energy Expenditure (kcals/day) 3976-0319 kcal/day (BEE x 1-1.2 CBW for maintenance) Estimated Protein Required (g/day) 71-83 gm/day (1.2-1.4 gm/kg CBW for ESRD on HD) Estimated Fluid Required (l/day) Per MD (ESRD) Problem/Etiology/Signs/Symptoms Inadequate enteral nutrition related to maintenance as evidenced by held TF, and need for GI workups. Expected Outcomes/Goals - Monitor provision of enteral nutrition w/ goal of pt tolerance and meeting at least 75% of estimated nutritional needs, labs trending WNL, normal GI function, and skin integrity/wt maintenance Dietitian Recommendations * If/when medically appropriate, consider Diabetisource AC at 40 ml/hr (goal rate), Prosource daily, Free Water Flush: 200 ml q6 via GT Provides: 1212 kcal/day, 73 gm protein/day, and 1585 ml free water/day Meets: 92% of lower end of estimated caloric needs and and 103% of lower end of estimated protein needs Follow Up High Risk: F/U in 2-3days Follow Up By Dec 26, 2016 Alert Not Indicated
--- NOTE | 2016-12-24 16:00 | NUR ---
ROUNDS PT STABLE, RESTING IN BED. SACRAL WOUNDS CLEANED WITH DRESSING DRY AND INTACT. HEEL LIFT BOOTS APPLIED TO BOTH FEET. PT HAS NO SIGNS OF DISTRESS OR SOB. BED IN LOWEST POSITION. WILL CONTINUE TO MONITOR.
--- NOTE | 2016-12-24 16:00 | NUR ---
WOUND EVALUATION: Wound Consult received from Dr. Vizcaino. Thank you, Dr. Vizcaino, for the consult. Patient received in a Vanessa Bed with an Isoflex ANGELA mattress with low air loss therapy initiated, awake, alert, and confused. Patient is unable to turn independently. Trung Score is a 12. Past Medical History: Diabetes Mellitus, Hypertension, end-stage renal disease with hemodialysis, chronic respiratory failure, history of CVA, muscle weakness, unsteady gait. Recent Labs: WBC 13.2, RBC 2.81, hemoglobin 8.4, hematocrit 26.2, platelets 632, chloride 95, BUN 54, creatinine 2.83, GFR 25, glucose 247 magnesium 2.5, alkaline phosphatase 1008, albumin 1.5, PT 13.4, PTT 24.0. Intrinsic factors that delay wound healing: Diabetes Mellitus, end-stage renal disease with hemodialysis, chronic respiratory failure. Extrinsic factors that delay wound healing: Decreased mobility. Microbiology: Blood culture 2 in progress. MRSA screen results positive. Urine culture positive for Escherichia coli. Wound Assessment: 1. Right Buttock: Multiple wounds, probably self inflected from patient scratching himself, present on admission. Wound bed is 100% pink tissue. No odor, small sanguineous drainage. Measures 0.9 cm x 1.5 cm. 2. Right Buttock, medial to wound 1: Wound, present on admission. Wound bed is 100% yellow tissue. No odor, no drainage. Measures 2.8 cm x 6.6 cm. Recommend: Cleanse wounds with normal saline. Pat dry. Apply moisture barrier cream to wounds and jocelin-wounds. Apply hydrogel to any portion of wounds not covered by moisture barrier cream. Cover with alginate dressing, then foam dressing. Secure with transparent dressings. 3. Left posterior Heel: Chronic unstageable pressure ulcer, present on admission. Wound bed is unseen, has 100% black eschar. Dry, stable. No odor no drainage. Measures 2.5 cm x 3.0 cm. 4. Right Heel: Legible redness, present on admission. Recommend: Dressings needed. Elevate, offload and float bilateral heels with heel lift boots at all times. Cut out in side of boots if necessary if unable to float heel inside of boots. Also recommend: Reposition patient every 2 hours with pillow support and off-load pressure areas with pillows for pressure re-distribution. Offload, elevate and float bilateral heels with pillows. Perform skin care and monitor skin integrity Q shift. Use moisture barrier cream on buttocks and other moisture susceptible areas QID and as needed for soiling. Place patient on a low air-loss mattress.
[2016-12-24] MEDS: EPOETIN ALFA 3,000 UNITS/ML VIAL SUBCUT SCH (17:09)
[2016-12-24] MEDS ORDERED: *CUBICIN 6 MG/KG Q48H/PHARMACY XX PRN (17:30)
[2016-12-24] MEDS ORDERED: DAPTOmycin 500 MG in NS 50 ML IV SCH (18:00)
--- NOTE | 2016-12-24 18:26 | NUR ---
CLOSING PT RESTING IN BED. NO S/S OF DISTRESS OR SOB. ORAL CARE GIVEN. IV INTACT AND PATENT. QIU DRAINING TO GRAVITY. G-TUBE IN PLACE WITH NO LEAKAGE. DRESSING IN PLACE FOR SACRAL WOUNDS. HEEL BOOTS ON BOTH LEGS. PT REMAINED ITCHY THROUGHOUT SHIFT. BED IN LOWEST POSITION. ALL NEEDS MET DURING SHIFT. WILL GIVE REPORT TO NIGHT NURSE. Addendum: 12/24/16 at 1932 by Nicolas Emanuel RN ANTIBIOTIC ENDORSED TO VICE PRESIDENT SAFETY
[2016-12-24] MEDS: DAPTOmycin 350 MG in NS 50 ML IV SCH (19:59)
--- NOTE | 2016-12-24 20:05 | NUR ---
Rounds Received patient lying in bed resting, no s/s of any pain, no acute distress noted. Patient non verbal, awake. Vent dependent, RT at the bedside giving breathing tx. IV site checked intact and patent. Side rail padded in place for seizure precaution. Heel left boots in place. Ann cath to gravity yellow urine. GT feeding infusing well. Patient on Air mattress. Call light within reach.
--- NOTE | 2016-12-24 22:00 | NUR ---
Medication First dose of Cubicin IVPB completed no adverse reaction noted. will continue to monitor.
--- NOTE | 2016-12-24 22:50 | NUR ---
GT residual checked GT residual checked 80ml noted. HOB elevated. will monitor. GT feeding rate at 20ml/hour per order. will monitor.
--- NOTE | 2016-12-24 23:20 | NUR ---
Notes Informed Dr Vizcaino regarding severe sepsis risk screen and elevated heart rate of 125 no order received see sepsis screen notes for more info. Charge nurse made aware.
[2016-12-25] VITALS (10 sets, daily range): BP systolic 128–147
--- NOTE | 2016-12-25 | NUR ---
Flushed GT with H2O 200ml per order
--- NOTE | 2016-12-25 00:38 | NUR ---
Notes Temp 99.1 cooling measure provided removed heavy blanket. will monitor.
--- NOTE | 2016-12-25 03:01 | NUR ---
GT site care GT site care done changed dressing to GT site applied 4x4 drain gauze and secured with paper tape, no redness or drainage noted.
[2016-12-25] MEDS: IPRATROPIUM/ALBUTEROL SULFATE 3 ML AMPUL.NEB INH SCH ×6 (03:08→23:32)
--- NOTE | 2016-12-25 05:01 | NUR ---
Rounds Patient resting quietly, call light within reach.
[2016-12-25 05:12] LABS: HEPATITIS A AB, IgM Negative (Negative); HEPATITIS B CORE AB, IgM Negative (Negative); HEPATITIS B SURFACE AG Negative (Negative)
[2016-12-25] MEDS: ACETAMINOPHEN 650 MG/20.3 ML UDC GT PRN (05:32)
--- NOTE | 2016-12-25 05:41 | NUR ---
Notes s/s of pain noted, temp 99.4 Tylenol given and cooling measure provided. Heart rate 133 will monitor. Charge nurse made aware.
--- NOTE | 2016-12-25 06:04 | NUR ---
Flushed GT with H2O 200ml per order
[2016-12-25] MEDS: INSULIN REGULAR, HUMAN 100 UNITS/ML, 10 ML VIAL (novoLIN R) SUBCUT PRN ×4 (06:22→21:48)
[2016-12-25 06:35] LABS: BASOPHILS % (AUTO) 0.3 % (0.0-2.0); EOSINOPHILS # (AUTO) 0.5 K/uL (0.0-0.4); NEUTROPHILS # (AUTO) 14.4 K/uL (1.8-7.7)
[2016-12-25 06:42] LABS: EOSINOPHILS % (AUTO) 2.8 % (0.0-4.0); HEMATOCRIT 27.4 % (36-54); HEMOGLOBIN 8.6 g/dL (14.0-18.0); LYMPHOCYTES # (AUTO) 0.8 K/uL (1.0-5.5); LYMPHOCYTES % (AUTO) 4.8 % (20.5-51.5); MEAN CORPUSCULAR HEMOGLOBIN 29 pg (27-31); MEAN CORPUSCULAR HGB CONC 32 % (32-36); MEAN CORPUSCULAR VOLUME 93 fL (79.0-98.0); MONOCYTES # (AUTO) 0.7 K/uL (0.0-1.0); MONOCYTES % (AUTO) 4.5 % (1.7-9.3); NEUTROPHILS % (AUTO) 87.6 % (40.0-70.0); RED BLOOD CELL COUNT(AUTO) 2.96 MIL/uL (4.2-6.2); RED CELL DISTRIBUTION WIDTH 15.2 % (9.0-15.0)
[2016-12-25] MEDS: MORPHINE 2 MG/ML INJ. SYRINGE IVP PRN (06:42)
[2016-12-25 07:01] LABS: ALBUMIN 1.6 g/dL (3.4-4.8); BILIRUBIN,DIRECT 0.9 mg/dL (0.0-0.3); CALCIUM 9.1 mg/dL (8.4-11.0); CREATININE 2.17 mg/dL (0.55-1.30); POTASSIUM 3.4 mmol/L (3.5-5.1); TOTAL BILIRUBIN 1.2 mg/dL (0.0-1.0)
[2016-12-25 07:03] LABS: WHITE BLOOD COUNT (AUTO) 16.4 K/uL (4.8-10.8)
[2016-12-25 07:04] LABS: PLATELET COUNT (AUTO) 777 K/uL (130-430)
--- NOTE | 2016-12-25 07:10 | NUR ---
Notes Called Dr Vizcaino regarding critical lab result and elevated heart rate, no ans, answering machine only left a message. Awaiting for MD to call back.
--- NOTE | 2016-12-25 07:20 | NUR ---
Dr Carrillo Vizcaino called back informed regarding critical platelet 777 and also informed MD about elevated heart rate of 133 new order received to give NS 500ml bolus. Charge nurse made aware and Endorsed to on coming nurse.
--- NOTE | 2016-12-25 07:30 | NUR ---
OPENING NOTE RECEIVED PATIENT REPORT FROM RUSTIC TERRAZZO SETTER NURSE. NOTIFIED OF CRITICAL LAB VALUE WELL TACHYCARDIA AT 131. PHYSICIAN HAS ALREADY BEEN NOTIFIED, BOLUS OF 500ML ORDERED. BEGAN BY RUSTIC TERRAZZO SETTER NURSE. HR 121 AFTER BOLUS COMPLETED. PATIENT RECEIVED MORPHINE FOR PAIN MANAGEMENT BY RUSTIC TERRAZZO SETTER NURSE. PATIENT IS TRACH TO VENT. SETTINGS: 12/450/PEEP 5; 40%FI02. PATIENT TOLERATING VENT WELL. PATIENT HAS TACHYPNEA AT 32. PATIENT HAS TUBE FEEDING RUNNING AT 20ML. RESIDUAL AT 10ML. PATIENT HAS HEEL LIFT BOOTS AND Q2 TURNS. PATIENT HAS SEIZURE PRECAUTIONS IN PLACE, AND QIU DRAINING TO GRAVITY WITH DARK YELLOW URINE. PATIENTS BED IN LOWEST POSITION, CALL LIGHT WITHIN REACH, AND SIDE RAILS ARE UP FOR SAFETY. PATIENT IS NON VERBAL AT THIS TIME.
[2016-12-25] MEDS ORDERED: NS 500 ML IV ONE (08:00)
[2016-12-25] MEDS: SEVELAMER HCL 800 MG TABLET GT SCH ×3 (08:10→17:20)
[2016-12-25] MEDS: LACTULOSE 20 GM/30 ML UDC GT SCH ×2 (08:13→21:23)
[2016-12-25] MEDS: FERROUS SULFATE 300 MG/5 ML UDC PO SCH ×2 (08:13→21:24)
[2016-12-25] MEDS: ASCORBIC ACID 500 MG TABLET GT SCH ×2 (08:14→21:24)
[2016-12-25] MEDS: levETIRAcetam 500 MG TABLET GT SCH ×2 (08:14→21:24)
--- NOTE | 2016-12-25 08:15 | NUR ---
INITIAL NOTES: The patient is resting comfortably in bed and is showing no signs or symptoms of pain or distress. No seizure, hematuria, vomiting or fevers.AOX1 .Tracheostomy intact.ventilate machine in place.Lungs sounds are clear to auscultation.Abdomen are soft,no tenderness ,G-tube in place.Ne edema at extremities.Skin is No rashes, No breakdown.Instruct to the pt to call if needs help. call light within reach.
[2016-12-25] MEDS: amLODIPine BESYLATE 10 MG TABLET GT SCH (08:18)
[2016-12-25] MEDS: LISINOPRIL 20 MG TABLET GT SCH (08:18)
[2016-12-25] MEDS: MUPIROCIN 2% TOPICAL OINTMENT 22 GM TP SCH ×2 (08:19→21:54)
[2016-12-25] MEDS: HEPARIN SODIUM,PORCINE 5000 UNITS/ML VIAL SUBCUT SCH ×2 (08:20→21:28)
--- NOTE | 2016-12-25 10:18 | NUR ---
1000 NOTE PATIENT IS RESTING COMFORTABLY, NO COMPLAINTS OF PAIN PER WHITEHEAD SOLANO SCALE. PATIENT IS NON VERBAL AT THIS TIME. PATIENT IS TRACH TO VENT. SETTINGS: 12/450/PEEP 5; 40%FI02. PATIENT TOLERATING VENT WELL. PATIENT HAS TACHYPNEA AT 32. PATIENT HAS TUBE FEEDING RUNNING AT 20ML. RESIDUAL AT 10ML. PATIENT HAS HEEL LIFT BOOTS AND Q2 TURNS. PATIENT HAS SEIZURE PRECAUTIONS IN PLACE, AND QIU DRAINING TO GRAVITY WITH DARK YELLOW URINE. PATIENTS BED IN LOWEST POSITION, CALL LIGHT WITHIN REACH, AND SIDE RAILS ARE UP FOR SAFETY. PATIENT HAS NO NOTABLE SIGNS OF DISTRESS AT THIS TIME. WILL CONTINUE TO MONITOR PATIENT FOR CHANGES IN STATUS.
[2016-12-25 11:07] LABS: AFP, TUMOR MARKER 1.5 ng/mL (0.0-8.3)
[2016-12-25] MEDS: cefTRIAXone 1 GM in D5W 50 ML IV SCH (11:07)
--- NOTE | 2016-12-25 12:54 | NUR ---
DISCHARGE PLANNING DC Planning order for [facility] evaluation. Faxed DC Planning order to [phone]. Notified [facility] Will follow up. Addendum: 12/25/16 at 1519 by Sylvia Palumbo DP Spoke with [facility] Marie patient was financially denied. Spoke with Gerardo at [facility] who was made aware of discharge plan for possibly 12/27. DC will keep Gerardo at [facility] informed of patient discharge back to [facility].
--- NOTE | 2016-12-25 13:01 | NUR ---
1200 NOTE PATIENT IS RESTING COMFORTABLY, NO COMPLAINTS OF PAIN PER WHITEHEAD SOLANO SCALE. PATIENT IS NON VERBAL AT THIS TIME. PATIENT IS TRACH TO VENT. SETTINGS: 12/450/PEEP 5; 40%FI02. PATIENT TOLERATING VENT WELL. PATIENT HAS TACHYPNEA AT 32. PATIENT HAS TUBE FEEDING RUNNING AT 20ML. RESIDUAL AT 10ML. FREE WATER FLUSH OF 200 GIVEN. PATIENT HAS HEEL LIFT BOOTS AND Q2 TURNS. PATIENT HAS SEIZURE PRECAUTIONS IN PLACE, AND QIU DRAINING TO GRAVITY WITH DARK YELLOW URINE. PATIENTS BED IN LOWEST POSITION, CALL LIGHT WITHIN REACH, AND SIDE RAILS ARE UP FOR SAFETY. PATIENT HAS NO NOTABLE SIGNS OF DISTRESS AT THIS TIME. WILL CONTINUE TO MONITOR PATIENT FOR CHANGES IN STATUS. HEMODIALYSIS ORDER WAS PRINTED AND PLACED IN HOUSE SUPERVISORS OFFICE.
--- NOTE | 2016-12-25 13:52 | NUR ---
Case mgt: Discussed POC with Dr. Vizcaino, Dr. Catalan--per Dr. Vizcaino, pt needs new permacath placement per Dr. Laurent. I called Dr. You per order and notified him of the consult. I called nurse Smith to update on new order and find out who is [facility] for consent.
--- NOTE | 2016-12-25 13:58 | NUR ---
CONSULT FOR FUNMI SPOKE WITH DR. CHOUDHARY REGARDING CONSULT. PERMACATH PLACEMENT. ORDER FOR "CONSENT FOR PLACEMENT OF NEW PERMACATH UNDER ULTRASOUND AND FLUOROSCOPY. NPO AFTER MIDNIGHT. MD AWARE PATIENT IS ON TUBE FEEDING. ORDERS ENTERED BY JESSICA.
--- NOTE | 2016-12-25 14:14 | NUR ---
NOTE CALLED NUMBER OF "GUARANTOR" ON FACE SHEET. [phone]. I WAS GIVEN THE PHONE NUMBER FOR INSTRUMENT SHOP SUPERVISOR FOR THE PATIENT, JENA GRUBER. [phone]. LEFT MESSAGE ON PHONE TO RETURN MY CALL FOR CONSENT AUTHORIZATION. GIVEN CALL BACK NUMBER AND NAME TO ASK FOR. WILL BE AWAITING HIS CALL.
--- NOTE | 2016-12-25 14:18 | NUR ---
NOTE: JENA GRUBER RETURNED PHONE CALL PROMPTLY. SHE STATED THAT SHE WILL GET THE PAPERWORK TOGETHER AND SENT TO THE MEDICAL TEAM FOR REVIEW. PHONE NUMBER WAS GIVEN FOR ONGOING CONTACT DURING THE PROCESSES, AND OKAY TO CALL IF QUESTIONS OR CONCERNS ARISE. WILL CONTINUE TO FOLLOW UP. SPOKE WITH RICKIE GETTER OPERATOR AND SHE WAS NOTIFIED THAT I SPOKE WITH THE MANAGER HOSPICE JENA REGARDING CONSENT.
--- NOTE | 2016-12-25 14:39 | NUR ---
JOJO PER PHARMACY, SPOKE WITH PHARMACIST JOJO PER PHARMACY, SPOKE WITH PHARMACIST MARIAM REGARDING ORDERS FOR VANCO PER PHARMACY. INFORMATION REGARDING PATIENTS HEIGHT AND WEIGHT GIVEN. HE STATED HE WILL LOOK AT THE PATIENTS CHART.
--- NOTE | 2016-12-25 15:10 | NUR ---
PHARMACY SPOKE WITH MARIAM VIA PHONE. PATIENT DOES NOT NEED TO BE ON VANCO, PATIENT IS ALREADY ON CUBACIN.
[2016-12-25 15:15] LABS: ANTI NUCLEAR AB WITH REFLEX Negative (Negative)
--- NOTE | 2016-12-25 16:22 | NUR ---
1600 NOTE PATIENT IS RESTING COMFORTABLY, NO COMPLAINTS OF PAIN PER WHITEHEAD SOLANO SCALE. PATIENT IS NON VERBAL AT THIS TIME. PATIENT IS TRACH TO VENT. SETTINGS: 12/450/PEEP 5; 40%FI02. PATIENT TOLERATING VENT WELL. PATIENT HAS TACHYPNEA AT 29. PATIENT HAS TUBE FEEDING RUNNING AT 20ML. RESIDUAL AT 10ML. PATIENT HAS HEEL LIFT BOOTS AND Q2 TURNS. PATIENT HAS SEIZURE PRECAUTIONS IN PLACE, AND QIU DRAINING TO GRAVITY WITH DARK YELLOW URINE. PATIENTS BED IN LOWEST POSITION, CALL LIGHT WITHIN REACH, AND SIDE RAILS ARE UP FOR SAFETY. PATIENT HAS NO NOTABLE SIGNS OF DISTRESS AT THIS TIME. WILL CONTINUE TO MONITOR PATIENT FOR CHANGES IN STATUS.
--- NOTE | 2016-12-25 18:44 | NUR ---
1800/CLOSING NOTE AWAITING TO GIVE REPORT TO FOUR H CLUB AGENT NURSE. PATIENT IS RESTING COMFORTABLY, NO COMPLAINTS OF PAIN PER WHITEHEAD SOLANO SCALE. PATIENT IS NON VERBAL AT THIS TIME. PATIENT IS TRACH TO VENT. SETTINGS: 12/450/PEEP 5; 40%FI02. PATIENT TOLERATING VENT WELL. PATIENT HAS TACHYPNEA AT 31. PATIENT HAS TUBE FEEDING RUNNING AT 20ML. RESIDUAL AT 10ML. FREE WATER FLUSH OF 200 GIVEN. PATIENT HAS HEEL LIFT BOOTS AND Q2 TURNS. PATIENT HAS SEIZURE PRECAUTIONS IN PLACE, AND QIU DRAINING TO GRAVITY WITH DARK YELLOW URINE. PATIENTS BED IN LOWEST POSITION, CALL LIGHT WITHIN REACH, AND SIDE RAILS ARE UP FOR SAFETY. PATIENT HAS NO NOTABLE SIGNS OF DISTRESS AT THIS TIME. WILL CONTINUE TO MONITOR PATIENT FOR CHANGES IN STATUS.
--- NOTE | 2016-12-25 22:00 | NUR ---
Blood sugar: medication is given,blood sugar is 234,with 4 units insulin coverage.
[2016-12-26] VITALS (8 sets, daily range): BP systolic 116–141
--- NOTE | 2016-12-26 00:05 | NUR ---
RN rounds: PT is resting ,two rails up.bed alarm on.continue monitor.
--- NOTE | 2016-12-26 02:12 | NUR ---
SINUSES TACHYCARDIA Tech report the pt heart rate is 200pbm.RN and CHARGE NURSE running to the room.reposition the pt.put the new quality assurance monitor body on. re-check the v/s,the heart rate become 120pbm.continue monitor.
[2016-12-26] MEDS: IPRATROPIUM/ALBUTEROL SULFATE 3 ML AMPUL.NEB INH SCH ×6 (03:00→23:13)
[2016-12-26 05:08] LABS: CERULOPLASMIN 37.2 mg/dL (16.0-31.0)
[2016-12-26 06:27] LABS: BASOPHILS # (AUTO) 0.1 K/uL (0.0-0.2); EOSINOPHILS # (AUTO) 0.5 K/uL (0.0-0.4); HEMATOCRIT 25.1 % (36-54); MEAN CORPUSCULAR VOLUME 93 fL (79.0-98.0)
[2016-12-26 06:39] LABS: CALCIUM 8.8 mg/dL (8.4-11.0); CREATININE 2.9 mg/dL (0.55-1.30); POTASSIUM 3.6 mmol/L (3.5-5.1)
[2016-12-26 06:41] LABS: BASOPHILS % (AUTO) 0.7 % (0.0-2.0); EOSINOPHILS % (AUTO) 3.1 % (0.0-4.0); HEMOGLOBIN 7.9 g/dL (14.0-18.0); LYMPHOCYTES # (AUTO) 1.7 K/uL (1.0-5.5); LYMPHOCYTES % (AUTO) 11.6 % (20.5-51.5); MEAN CORPUSCULAR HEMOGLOBIN 29 pg (27-31); MEAN CORPUSCULAR HGB CONC 32 % (32-36); MONOCYTES # (AUTO) 0.5 K/uL (0.0-1.0); MONOCYTES % (AUTO) 3.6 % (1.7-9.3); NEUTROPHILS # (AUTO) 11.7 K/uL (1.8-7.7); RED BLOOD CELL COUNT(AUTO) 2.69 MIL/uL (4.2-6.2); RED CELL DISTRIBUTION WIDTH 15.8 % (9.0-15.0)
[2016-12-26 06:44] LABS: PLATELET COUNT (AUTO) 762 K/uL (130-430)
[2016-12-26 07:48] LABS: WHITE BLOOD COUNT (AUTO) 14.5 K/uL (4.8-10.8)
[2016-12-26] MEDS: SEVELAMER HCL 800 MG TABLET GT SCH ×3 (08:00→17:29)
[2016-12-26 08:03] LABS: INR 1.2 (0.80-1.20); PROTHROMBIN TIME 12.7 SECS (9.5-12.5)
--- NOTE | 2016-12-26 08:21 | NUR ---
Dr. Mccormack at bedside, assessing the patient, informed of new permacath placement today with Dr. You and then dialysis, will follow up with any new orders.
[2016-12-26] MEDS: FERROUS SULFATE 300 MG/5 ML UDC PO SCH ×2 (09:00→21:32)
[2016-12-26] MEDS: LACTULOSE 20 GM/30 ML UDC GT SCH ×2 (09:00→21:32)
[2016-12-26] MEDS: HEPARIN SODIUM,PORCINE 5000 UNITS/ML VIAL SUBCUT SCH ×2 (09:00→21:40)
[2016-12-26] MEDS: ASCORBIC ACID 500 MG TABLET GT SCH ×2 (09:00→21:32)
[2016-12-26] MEDS: levETIRAcetam 500 MG TABLET GT SCH ×2 (09:55→21:32)
[2016-12-26] MEDS: LISINOPRIL 20 MG TABLET GT SCH (09:57)
[2016-12-26] MEDS: amLODIPine BESYLATE 10 MG TABLET GT SCH (09:58)
[2016-12-26] MEDS: MUPIROCIN 2% TOPICAL OINTMENT 22 GM TP SCH ×2 (09:59→21:33)
[2016-12-26 10:14] LABS: ANTI-SMOOTH MUSCLE AB 16 Units (0-19); LIVER-KIDNEY MICROSOMAL AB 2.6 Units (0.0-20.0)
[2016-12-26] MEDS ORDERED: METOPROLOL TARTRATE 25 MG TABLET GT ONE (10:45)
[2016-12-26] MEDS: cefTRIAXone 1 GM in D5W 50 ML IV SCH (11:12)
[2016-12-26] MEDS: INSULIN REGULAR, HUMAN 100 UNITS/ML, 10 ML VIAL (novoLIN R) SUBCUT PRN ×3 (11:27→21:36)
--- NOTE | 2016-12-26 11:43 | NUR ---
DC planning: Pt pending new Permacath placement. Pt is HD pt, trach-vent, isolation for MRSA in blood-new BC drawn 12/24/16 are pending--urine cx=E. Coli--[facility] has bed--bed hold up tomorrow. Dr. Vizcaino and Dr. Catalan aware bed hold up tomorrow--no discharge order at this time.
--- NOTE | 2016-12-26 12:10 | NUR ---
Dr. You at nurse's station, informed that consent is still pending at this time, Dr. You saw the patient and stated that due to line infection the line will need to be removed and then 24-48 hours later once infection is improved he can place a new line, will inform Dr. Vizcaino. Also informed Dr. You that patient will be getting dialysis today.
--- NOTE | 2016-12-26 12:12 | NUR ---
Dr. Wharton At nurse's station, ABG results reported by RT, orders received for 2 amps of Bicarb, change respiratory rate to 20/bpm, and repeat ABG in one hour, will follow up. Addendum: 12/26/16 at 1215 by Hans Bowser RN Nurse did inform Dr. Wharton that patient is breathing over the vent, low grade fevers and is due to hemodialysis today post permacath placement.
[2016-12-26] MEDS ORDERED: SODIUM BICARBONATE 8.4% JECT 50 MEQ/50 ML SYRINGE IVP ONE ×2 (12:15→12:30)
[2016-12-26] MEDS: NACL 0.9% 1,000 ML IV SCH (12:30)
--- NOTE | 2016-12-26 12:44 | NUR ---
First amp of Bicarb and IVF administered at this time, waiting on pharmacy verification of second amp of Bicarb, will follow up, patient tolerating new vent respiratory rate well, will follow up with ABG today at 1330, stable condition at this time.
--- NOTE | 2016-12-26 13:22 | NUR ---
Second Amp of Bicarb Given at this time, could not scan due to [place] town. IV site is patent and infusing well.
[2016-12-26] MEDS ORDERED: SODIUM BICARBONATE 8.4% JECT 50 MEQ/50 ML SYRINGE ONE (13:29)
--- NOTE | 2016-12-26 14:40 | NUR ---
Dr. Wharton At nurse's station, informed of second ABG results and dialysis today.
[2016-12-26 14:55] LABS: FERRITIN 2025 ng/mL (30-400)
[2016-12-26 14:56] LABS: ALPHA-1-ANTITRYPSIN, S 246 mg/dL (90-200)
[2016-12-26 14:57] LABS: ALKALINE PHOSPHATASE 967 IU/L (39-117)
--- NOTE | 2016-12-26 15:01 | NUR ---
Nutrition F/U Admitting Diagnosis Aspiration pneumonia Reviewed Pertinent Medical/Surgical Hx Patient Primary RN Medical record Medical History Comment: DM, HTN, ESRD w/ HD, chronic respiratory failure, CVA, muscle weakness, unsteady gait per MD notes Subjective Information Pt seen resting in bed at time of RD visit, +trach to vent, w/ TF hung but not infusing. Per RN, pt is pending dialysis, and re-starting of TF. She stated that pt will need a new Permacath placement. Pt continues w/ +MRSA in blood. RD relayed RD rec for TF to RN, and she stated she would call MD regarding new TF orders. Per EMR, TF Intakes: 340 ml 12/25/16. Residuals: 0 ml 12/26/16. Abd is soft and non-distended w/ active bowel sounds. I/O: 0/50 (-50 ml) per 12 hours. Pt is not yet meeting optimal nutritional needs. Pt is not appropriate for nutrition education. Current Diet Order/Nutrition Support NPO Patient/Significant Other Unable To Verbalize Education Provided Not Indicated Pertinent Medications zinc sulfate, SSI Pertinent Labs WBC 14.5 H, H/H 7.9 L/25.1 L, Na 133 L, BUN 42 H, eGFR 24 L, BG 357 H, POC BG 412 H Height (Feet) 5 feet Height (Inches) 5.00 inches Weight (Pounds) 130 pounds BEDSCALE WT: 144 lb (12/26/16) -- possibly inaccurate as bedscale may not have been calibrated properly Weight (Calculated Kilograms) 58.984413 kilograms Patient Weight 58.967 kg Body Mass Index 21.63 kg/m2 %IBW 95 [place]/Adjusted Body Weight IBW: 136 lb, 62 kg Weight Status Appropriate Skin Integrity Comment: Trung scale: 13; per Hearing Health Technician note 12/24/16: 1. Right Buttock: Multiple wounds, probably self inflected from patient scratching himself, present on admission. 2. Right Buttock, medial to wound 1: Wound, present on admission. 3. Left posterior Heel: Chronic unstageable pressure ulcer, present on admission. 4. Right Heel: Legible redness, present on admission. Estimated Energy Expenditure (kcals/day) 0080-9308 kcal/day (BEE x 1-1.2 CBW for maintenance) Estimated Protein Required (g/day) 71-83 gm/day (1.2-1.4 gm/kg CBW for ESRD on HD) Estimated Fluid Required (l/day) Per MD (ESRD) Problem/Etiology/Signs/Symptoms Inadequate enteral nutrition related to maintenance as evidenced by held TF, and need for GI workups. *ongoing Expected Outcomes/Goals - Monitor provision of enteral nutrition w/ goal of pt tolerance and meeting at least 75% of estimated nutritional needs, labs trending WNL, normal GI function, and skin integrity/wt maintenance Dietitian Recommendations * Recommend Diabetisource AC at 40 ml/hr (goal rate), Prosource daily, Free Water Flush: 200 ml q6 via GT Provides: 1212 kcal/day, 73 gm protein/day, and 1585 ml free water/day Meets: 92% of lower end of estimated caloric needs and and 103% of lower end of estimated protein needs Follow Up High Risk: F/U in 2-3 days
--- NOTE | 2016-12-26 15:11 | NUR ---
Dietitian Recommendations * Recommend Diabetisource AC at 40 ml/hr (goal rate), Prosource daily, Free Water Flush: 200 ml q6 via GT Provides: 1212 kcal/day, 73 gm protein/day, and 1585 ml free water/day Meets: 92% of lower end of estimated caloric needs and and 103% of lower end of estimated protein needs LP, RD Please refer to Nutrition F/U for details.
--- NOTE | 2016-12-26 15:31 | NUR ---
WOUND RE-EVALUATION: Patient received in a Glidden Bed with an Isoflex ANGELA mattress with low air loss therapy, awake, alert, and confused. Patient is unable to turn independently. Trung Score is a 14. Intrinsic factors that delay wound healing: Diabetes Mellitus, end-stage renal disease with hemodialysis, chronic respiratory failure. Extrinsic factors that delay wound healing: Decreased mobility. Microbiology: Blood culture 2 in progress. Wound Assessment: 1. Right Buttock: Multiple wounds, probably self inflected from patient scratching himself, present on admission. Wound bed is 100% pink tissue. No odor, small sanguineous drainage. Measures 3.5 cm x 6.5 cm. 2. Right Buttock, medial to wound 1: Wound, present on admission. Wound bed is 100% pink tissue. No odor, no drainage. Recommend: Cleanse wounds with normal saline. Pat dry. Apply moisture barrier cream to wounds and jocelin-wounds. Apply hydrogel to any portion of wounds not covered by moisture barrier cream. Cover with alginate dressing, then foam dressing. Secure with transparent dressings. 3. Left posterior Heel: Chronic unstageable pressure ulcer, present on admission. Wound bed is unseen, has 100% black eschar. Dry, stable. No odor no drainage. Measures 2.5 cm x 3.0 cm. 4. Right Heel: Legible redness, present on admission. 5. Right Medial Great Toe: Chronic unstageable pressure ulcer, present on admission. Wound bed has 100% black eschar. Dry, stable. No odor no drainage. Measures 1.4 cm x 1.3 cm. Recommend continue: Dressings needed. Elevate, offload and float bilateral heels with heel lift boots at all times. Cut out in side of boots if necessary if unable to float heel inside of boots. Also recommend continue: Reposition patient every 2 hours with pillow support and off-load pressure areas with pillows for pressure re-distribution. Offload, elevate and float bilateral heels with pillows. Perform skin care and monitor skin integrity Q shift. Use moisture barrier cream on buttocks and other moisture susceptible areas QID and as needed for soiling. Maintain patient on a low air-loss mattress.
--- NOTE | 2016-12-26 15:40 | NUR ---
Wound care note Wound Assessment: 1. Right Buttock: Multiple wounds, probably self inflected from patient scratching himself, present on admission. Wound bed is 100% pink tissue. No odor, small sanguineous drainage. Measures 3.5 cm x 6.5 cm. 2. Right Buttock, medial to wound 1: Wound, present on admission. Wound bed is 100% pink tissue. No odor, no drainage. Cleansed wounds with normal saline. Patted dry. Applied moisture barrier cream to wounds and jocelin-wounds. Applied hydrogel to any portion of wounds not covered by moisture barrier cream. Covered with alginate dressing, then foam dressing. Secured with transparent dressings. 3. Left posterior Heel: Chronic unstageable pressure ulcer, present on admission. Wound bed is unseen, has 100% black eschar. Dry, stable. No odor no drainage. Measures 2.5 cm x 3.0 cm. 4. Right Heel: Legible redness, present on admission. 5. Right Medial Great Toe: Chronic unstageable pressure ulcer, present on admission. Wound bed has 100% black eschar. Dry, stable. No odor no drainage. Measures 1.4 cm x 1.3 cm. Dressings needed. Elevating, offloading and floating bilateral heels with heel lift boots at all times. Cut out in side of boots if necessary if unable to float heel inside of boots. Repositioning patient every 2 hours with pillow support and off-loading pressure areas with pillows for pressure re-distribution. Offloading, elevating and floating bilateral heels with pillows. Performing skin care and monitor skin integrity Q shift. Using moisture barrier cream on buttocks and other moisture susceptible areas QID and as needed for soiling. Maintaining patient on a low air-loss mattress.
--- NOTE | 2016-12-26 18:08 | NUR ---
S/W Dr. Rainey CTAP to be tomorrow, contrast ok to give via G TUBE, stated ok to resume tubefeeding at goat driver recommended rate.
--- NOTE | 2016-12-26 18:13 | NUR ---
Hemodialysis at this time, patient is tolerating well at this time, resumed G TUBE feeding.
--- NOTE | 2016-12-26 18:39 | NUR ---
S/W Pharmacy no procrit available at this time, will follow up as needed.
[2016-12-26] MEDS: ACETAMINOPHEN 650 MG/20.3 ML UDC GT PRN (18:46)
[2016-12-26] MEDS: EPOETIN ALFA 3,000 UNITS/ML VIAL SUBCUT SCH (18:56)
--- NOTE | 2016-12-26 19:28 | NUR ---
Closing Note patient resting in bed, awake, no signs of distress, tolerating hemodialysis well at this time, all needs met, report given to Franci RN, bed in lowest position, three side rails up, bed alarm on, bed close to nurse's station, fall, aspiration, isolation and seizure precautions in place.
--- NOTE | 2016-12-26 20:00 | NUR ---
ROUNDS PATIENT AWAKE, NON VERBAL, ON/MECHANICAL VENT, VITALS STABLE, NO SOB NOTED NOR PAIN AND DISCOMFORT AT THIS TIME. HEMODIALYSIS ON GOING, TOLERATING PROCEDURE WELL. ASSESSMENT DONE AND DOCUMENTED. SEE FLOWSHEET. NEEDS ATTENDED TO. SAFETY AND FALL PRECAUTION MEASURES IN PLACED. WILL CONTINUE TO MONITOR.
--- NOTE | 2016-12-26 21:15 | NUR ---
MEDICATION DUE MEDICATIONS GIVEN PER G TUBE ORDERED, TOLERATED WELL. WILL CONTINUE TO MONITOR.
[2016-12-26] MEDS: DAPTOmycin 350 MG in NS 50 ML IV SCH (21:31)
[2016-12-27] VITALS (8 sets, daily range): BP systolic 127–145
--- NOTE | 2016-12-27 | NUR ---
PATIENT RESTING: Patient resting quietly. No acute distress noted. Vital signs within normal range.
--- NOTE | 2016-12-27 02:15 | NUR ---
PATIENT RESTING: Patient resting quietly. No acute distress noted. Vital signs within normal range.
--- NOTE | 2016-12-27 04:15 | NUR ---
PATIENT RESTING: Patient resting quietly. No acute distress noted. Vital signs within normal range.
[2016-12-27] MEDS: INSULIN REGULAR, HUMAN 100 UNITS/ML, 10 ML VIAL (novoLIN R) SUBCUT PRN ×4 (05:47→22:32)
[2016-12-27 06:35] LABS: HEMATOCRIT 23.8 % (36-54); HEMOGLOBIN 7.5 g/dL (14.0-18.0); MEAN CORPUSCULAR HEMOGLOBIN 30 pg (27-31); MEAN CORPUSCULAR HGB CONC 32 % (32-36); MEAN CORPUSCULAR VOLUME 94 fL (79.0-98.0); RED BLOOD CELL COUNT(AUTO) 2.53 MIL/uL (4.2-6.2); RED CELL DISTRIBUTION WIDTH 15.3 % (9.0-15.0); WHITE BLOOD COUNT (AUTO) 18.8 K/uL (4.8-10.8)
--- NOTE | 2016-12-27 06:45 | NUR ---
CLOSING NOTES PAGED AND TALKED TO DR. GERARD, PATIENT'S HEART RATE SUSTAINING ON THE 140'S ON THE HEART MONITOR. NEW ORDERS GIVEN FOR CARDIO CONSULT WITH DR. ACOSTA AND LOPRESSOR 25 MG GT X1. WILL CONTINUE TO MONITOR.
[2016-12-27 06:48] LABS: ALBUMIN 1.6 g/dL (3.4-4.8); CALCIUM 8.7 mg/dL (8.4-11.0); CREATININE 2.14 mg/dL (0.55-1.30); PHOSPHORUS 3.1 mg/dL (2.7-4.5); POTASSIUM 3.3 mmol/L (3.5-5.1)
[2016-12-27] MEDS ORDERED: METOPROLOL TARTRATE 25 MG TABLET GT ONE (07:00)
--- NOTE | 2016-12-27 07:13 | NUR ---
Cardio consult called: for Dr. Faye, regarding increased heart rate, ordered by Dr. Vizcaino, spoke with Rich at exchange.
[2016-12-27 07:23] LABS: PLATELET COUNT (AUTO) 770 K/uL (130-430)
--- NOTE | 2016-12-27 07:59 | NUR ---
OPENING NOTE RECEIVED REPORT FROM NIGHT RN. PT SLEEPING IN BED WITH NO SIGNS OF DISTRESS OR SOB. IV REMOVED BY PT. VITAL SIGNS - TEMPERATURE HIGH AT 100.3, HR 136 SINUS TACH. QIU DRAINING TO GRAVITY. G-TUBE IN PLACE WITH NO LEAKAGE, C/D/I. BED IN LOWEST POSITION. WILL CONTINUE TO MONITOR CLOSELY.
[2016-12-27] MEDS ORDERED: DIATR MEGLU/DIATRIZ SOD 30 ML SOLUTION PO ONE (08:36)
[2016-12-27] MEDS: SEVELAMER HCL 800 MG TABLET GT SCH ×3 (08:46→17:24)
[2016-12-27] MEDS: LACTULOSE 20 GM/30 ML UDC GT SCH ×2 (08:46→22:13)
[2016-12-27] MEDS: LISINOPRIL 20 MG TABLET GT SCH (08:47)
[2016-12-27] MEDS: ASCORBIC ACID 500 MG TABLET GT SCH ×2 (08:47→22:13)
[2016-12-27] MEDS: levETIRAcetam 500 MG TABLET GT SCH ×2 (08:47→22:13)
[2016-12-27] MEDS: amLODIPine BESYLATE 10 MG TABLET GT SCH (08:48)
[2016-12-27] MEDS: HEPARIN SODIUM,PORCINE 5000 UNITS/ML VIAL SUBCUT SCH ×2 (08:50→22:20)
[2016-12-27] MEDS: MUPIROCIN 2% TOPICAL OINTMENT 22 GM TP SCH ×2 (08:51→22:26)
[2016-12-27] MEDS: FERROUS SULFATE 300 MG/5 ML UDC PO SCH ×2 (08:52→22:12)
[2016-12-27 09:42] LABS: ATYPICAL LYMPHOCYTES % 0 % (0-0); BAND % (MANUAL) 2 % (0-6); BASOPHILS % (MANUAL) 0 % (0-2); EOSINOPHILS % (MANUAL) 0 % (0-7); LYMPHOCYTES % (MANUAL) 14 % (20-46); MONOCYTES % (MANUAL) 6 % (0-11)
--- NOTE | 2016-12-27 10:29 | NUR ---
ROUNDS PT RESTING IN BED WITH NO S/S OF DISTRESS OR SOB. MEDS GIVEN. PT SCHEDULED FOR CT SCAN, CONTRAST ADMINISTERED. BED IN LOWEST POSITION. WILL CONTINUE TO MONITOR.
[2016-12-27] MEDS ORDERED: METOPROLOL SUCCINATE 25 MG TAB.SR.24H (TOPROL XL) PO SCH (10:45)
[2016-12-27] MEDS: ACETAMINOPHEN 650 MG/20.3 ML UDC GT PRN (11:15)
[2016-12-27] MEDS ORDERED: POTASSIUM CHLORIDE 20 MEQ TAB.PRT.SR PO PRN (12:00)
[2016-12-27] MEDS ORDERED: POTASSIUM CHLORIDE 20 MEQ TAB.PRT.SR PO ONE (12:00)
--- NOTE | 2016-12-27 12:00 | NUR ---
ROUNDS PT RESTING IN BED WITH NO SIGNS OF DISTRESS/SOB. BS 420, NOTIFIED AND 12 U INSULIN GIVEN, NO FURTHER ORDERS. PT BACK FROM CT SCAN. NEW IV INSERTED, MEDS GIVEN, ANTIBIOTIC RUNNING. BED IN LOWEST POSITION. WILL CONTINUE TO MONITOR.
[2016-12-27] MEDS: cefTRIAXone 1 GM in D5W 50 ML IV SCH (12:25)
[2016-12-27] MEDS ORDERED: LIDOCAINE 1% 10 MG/ML, 20 ML MDV INJ ONE (12:30)
[2016-12-27 13:15] LABS: ALK PHOSPAHATASE BONE FRACTION 27 % (12-68); INTESTINAL FRACTION 1 % (0-18); LIVER FRACTION 72 % (13-88)
--- NOTE | 2016-12-27 13:54 | NUR ---
PT RESTING IN BED WITH NO S/S OF DISTRESS OR SOB. LIDOCAINE GIVEN ORDERED. BED IN LOWEST POSITION. WILL CONTINUE TO MONITOR. Addendum: 12/27/16 at 1437 by Nicolas Emanuel RN LIDOCAINE NOT GIVEN, WAS VERIFIED.
--- NOTE | 2016-12-27 14:27 | NUR ---
DISCHARGE PLANNING Called and spoke with Gerardo in admitting at [facility], will have patient room on hold upon patient discharge. Gerardo requested DCP/CM to call facility on Friday with status update on possible discharge back. Note left for weekend CM to follow up and notify facility.
--- NOTE | 2016-12-27 15:18 | NUR ---
DR. FUNMI CHOUDHARY REMOVED THE PERMACATH AT BEDSIDE. NO COMPLICATIONS. PATIENT TOLERATED PROCEDURE WELL.
--- NOTE | 2016-12-27 16:00 | NUR ---
ROUNDS PT RESTING IN BED WITH NO S/S OF DISTRESS OR SOB. R CHEST PERMACATH REMOVED. NEW PERMACATH SCHEDULED FOR 12/30 PER . TEMP DECREASED TO 99.7. SACRAL DRESSING CHANGED. BED IN LOWEST POSITION. WILL CONTINUE TO MONITOR.
[2016-12-27] MEDS: IPRATROPIUM/ALBUTEROL SULFATE 3 ML AMPUL.NEB INH SCH ×4 (16:06→23:38)
--- NOTE | 2016-12-27 16:52 | NUR ---
ATTENDING , DR LAM WAS CALLED, RE: CRITICAL LABS. SPOKE TO DEMETRIA Addendum: 12/27/16 at 1653 by Telma Mario MT/ ERROR WRONG PT
--- NOTE | 2016-12-27 18:00 | NUR ---
CLOSING PT RESTING IN BED WITH NO S/S OF DISTRESS OR SOB. IV INTACT AND PATENT. QIU DRAINING TO GRAVITY. HEEL BOOTS IN PLACE. SACRAL WOUNDS DRESSED. G-TUBE INTACT WITH NO LEAKAGE, C/D/I. R CHEST PERMACATH REMOVED. ALL NEEDS MET DURING SHIFT. WILL GIVE REPORT TO MANAGER RESPIRATORY RN.
--- NOTE | 2016-12-27 20:00 | NUR ---
STARTING NOTE PRINTED CIRCUIT BOARD PREASSEMBLER Patient in bed resting. He appears pretty warm and somewhat sweaty. He had a fever 100.8. No respiratory distress or pain noted. The patient is on a trach to vent, oxygen saturation was 99%. Patient has a Ann catheter, but very little urine, about 10 mL is noted in there. G-tube running smoothly, 30 mL residual noted. Fall and seizure precautions in place. Addendum: 12/28/16 at 0514 by Svetlana Hardin RN The nurse received a call from Yari marine railway operator. Yari wanted to know whether the patient has HD access. The nurse explained that the old Permacath was removed yesterday and a culture was obtained from it. New HD catheter will not be inserted unutil the culture result is received.
--- NOTE | 2016-12-27 22:30 | NUR ---
ROUNDS Patient in bed sleeping, No pain or distress noted. Temperature went down to 99.6. Patient somewhat diaphoretic, but in no distress.
[2016-12-28] MEDS: ACETAMINOPHEN 650 MG/20.3 ML UDC GT PRN ×3 (00:19→11:27)
--- NOTE | 2016-12-28 00:40 | NUR ---
ROUNDS Patient in bed sleeping. No pain or distress noted. Seizure precautions in place.
[2016-12-28] MEDS: IPRATROPIUM/ALBUTEROL SULFATE 3 ML AMPUL.NEB INH SCH ×5 (02:03→23:53)
[2016-12-28 03:32] VITALS: BP_SYST 142
--- NOTE | 2016-12-28 03:45 | NUR ---
HIGH HEART RATE The nurse noticed that the patient has high heart rate in the lower 130s. She noticed that the patient is grimacing and appear to be in pain. She decided to administer Morphine 2 mg PRN per MD order.
[2016-12-28] MEDS: MORPHINE 2 MG/ML INJ. SYRINGE IVP PRN (03:52)
--- NOTE | 2016-12-28 04:58 | NUR ---
PAGED I PAGED DR. ACOSTA @ [phone] I SPOKE WITH TANOBIA CYLINDER VALVE REPAIRER #[phone] DR. PADILLA B2B SALES CONSULTANT
--- NOTE | 2016-12-28 05:04 | NUR ---
HIGH HEART RATE The nurse paged Dr. Faye re: high heart rate in 130s, sinus tachycardia. Dr. Wang was applications engineer manufacturing. Dr. Wang called back and explained that since patient has infection and low hemoglobin 7.5, and since the rhythm is sinus tachycardia, but the BP is in the 130s (systolic), there is nothing that can be done at the moment, but once the infection is under control, the high heart rate as a symptom will disappear. No orders were placed. He said to notify him if the blood pressure drops.
--- NOTE | 2016-12-28 06:20 | NUR ---
HIGH BLOOD SUGAR The nurse checked patient's blood sugar and it was 504. The nurse administered Novolin R 12 units per MD order, waited 15 minutes and re-measured the blood sugar. The second measurement was also 504. The nurse called Dr. Townsend. Dr. Townsend put an order 12 units Novolin R X1 and to call him in 45 minutes. The nurse administered the X1 order Novolin R 12 units. The nurse conveyed to the day shift nurse on report to call the doctor about the blood sugar level.
[2016-12-28] MEDS: INSULIN REGULAR, HUMAN 100 UNITS/ML, 10 ML VIAL (novoLIN R) SUBCUT PRN ×6 (06:22→23:03)
[2016-12-28] MEDS ORDERED: INSULIN REGULAR, HUMAN 100 UNITS/ML, 10 ML VIAL (novoLIN R) SUBCUT ONE (07:00)
--- NOTE | 2016-12-28 07:00 | NUR ---
CALLED THE ATTENDING MD PHOTOGRAPHIC RESTORER, DR SHARPE, RE: BS OF 504.
--- NOTE | 2016-12-28 07:30 | NUR ---
INITIAL NOTE PATIENT LAYING IN SEMI FOWLERS, EYES CLOSED, RESTING, DOES NOT OPEN EYES TO VOICE, ACKNOWLEDGES PAINFUL STIMULI, DOES NOTE TRACK MOVEMENT WITH EYES, PER REPORT BLOOD SUGAR WAS ELEVEATED IN AM, PT GIVEN 12 UNITS AT 6AM AND 12 UNITS AT 7AM, MD ORDERED TO RECHECK BS IN 45 AND CALL BACK WITH RESULTS, WILL FOLLOW UP, PT HAS TRACH, ON VENT, SETTINGS NOTED, PT HR AND RR ELEVATED, MD AWARE PER REPORT, GTUBE IN PLACE AND FEEDING INFUSING AT ORDERED RATE, IV TO LEFT HAND INTACT, NO S/S OF INFILTRATION NOTED, QIU CATHETER IN PLACE, MANA URINE NOTED, SEIZURE AND ISOLATION PRECAUTIONS IN PLACE, BED IN LOW POSITION AND LOCKED, WILL MONITOR PT CLOSELY
[2016-12-28 07:43] LABS: BASOPHILS # (AUTO) 0.1 K/uL (0.0-0.2); EOSINOPHILS # (AUTO) 0.1 K/uL (0.0-0.4); HEMATOCRIT 23.3 % (36-54); HEMOGLOBIN 7.4 g/dL (14.0-18.0); LYMPHOCYTES # (AUTO) 0.9 K/uL (1.0-5.5); LYMPHOCYTES % (AUTO) 6.6 % (20.5-51.5); MEAN CORPUSCULAR HEMOGLOBIN 30 pg (27-31); MEAN CORPUSCULAR HGB CONC 32 % (32-36); MEAN CORPUSCULAR VOLUME 95 fL (79.0-98.0); MONOCYTES % (AUTO) 7.6 % (1.7-9.3); NEUTROPHILS # (AUTO) 11.6 K/uL (1.8-7.7); PLATELET COUNT (AUTO) 694 K/uL (130-430); RED BLOOD CELL COUNT(AUTO) 2.45 MIL/uL (4.2-6.2); RED CELL DISTRIBUTION WIDTH 15.6 % (9.0-15.0); WHITE BLOOD COUNT (AUTO) 13.7 K/uL (4.8-10.8)
--- NOTE | 2016-12-28 07:45 | NUR ---
BLOOD SUGAR 461, DR SHARPE PAGED TO UPDATE
[2016-12-28 07:58] LABS: ALBUMIN 1.6 g/dL (3.4-4.8); CALCIUM 8.5 mg/dL (8.4-11.0); CREATININE 2.88 mg/dL (0.55-1.30); PHOSPHORUS 4.2 mg/dL (2.7-4.5); POTASSIUM 4.4 mmol/L (3.5-5.1)
[2016-12-28 08:00] VITALS: BP_SYST 132
--- NOTE | 2016-12-28 08:00 | NUR ---
TEMPERATURE NOTED 100.8, COOLING MEASURES STARTED, TYLENOL GIVEN, ICE PACKS APPLIED TO HEAD AND UNDER ARMS, WILL FOLLOW UP WITH
--- NOTE | 2016-12-28 08:04 | NUR ---
PUT ANOTHER CALL TO THE ATTENDING MD DR SHARPE, RE: STILL HIGH BS ([phone]) WITH ELEVATED TEMP, FEVER. LEFT MD Cortney BLAKE
[2016-12-28] MEDS: SEVELAMER HCL 800 MG TABLET GT SCH ×3 (08:12→17:18)
[2016-12-28] MEDS: FERROUS SULFATE 300 MG/5 ML UDC PO SCH ×2 (08:12→22:49)
[2016-12-28] MEDS: LACTULOSE 20 GM/30 ML UDC GT SCH ×2 (08:12→22:49)
[2016-12-28] MEDS: ASCORBIC ACID 500 MG TABLET GT SCH ×2 (08:13→22:49)
[2016-12-28] MEDS: levETIRAcetam 500 MG TABLET GT SCH ×2 (08:13→22:50)
[2016-12-28] MEDS: amLODIPine BESYLATE 10 MG TABLET GT SCH (08:13)
[2016-12-28] MEDS: LISINOPRIL 20 MG TABLET GT SCH (08:13)
[2016-12-28] MEDS: METOPROLOL SUCCINATE 50 MG TAB.SR.24H (TOPROL XL) PO SCH (08:14)
[2016-12-28] MEDS: HEPARIN SODIUM,PORCINE 5000 UNITS/ML VIAL SUBCUT SCH ×2 (08:16→23:08)
[2016-12-28] MEDS: NACL 0.9% 1,000 ML IV SCH (08:17)
[2016-12-28] MEDS: MUPIROCIN 2% TOPICAL OINTMENT 22 GM TP SCH ×2 (08:17→23:08)
--- NOTE | 2016-12-28 08:40 | NUR ---
PUT ANOTHER F/U CALL TO DR SHARPE, RE: BS OF 464 AND FEVER.
[2016-12-28] MEDS ORDERED: INSULIN REGULAR, HUMAN 100 UNITS/ML, 10 ML VIAL SUBCUT ONE ×2 (08:45→10:15)
--- NOTE | 2016-12-28 08:45 | NUR ---
DR SHARPE CALL BACK, NEW ORDER RECEIVED FOR 20 UNITS REGULAR INSULIN NOW, TO SEE PATIENT IN ONE HOUR
--- NOTE | 2016-12-28 09:30 | NUR ---
DR BRODERICK MAKING ROUNDS, UPDATED ON PATIENTS STATUS, ELEVATED TEMPERATURE AND BLOOD SUGAR, STATED TO CONTINUE WITH COOLING MEASURES AND TYLENOL
--- NOTE | 2016-12-28 10:00 | NUR ---
DR SHARPE MAKING ROUNDS, BLOOD SUGAR RECHECKED, BLOOD SUGAR 403, MD ORDERED REGULAR INSULIN 10 UNITS NOW AND LEVEMIR TO START THIS EVENING, PATIENT REPOSITIONED WITH PILLOW SUPPORT AND COOLING PACKS CHANGED, TEMPERATURE NOTED TO BE 102, MORE PACKS APPLIED, WILL CONTINUE TO MONITOR
[2016-12-28] MEDS: cefTRIAXone 1 GM in D5W 50 ML IV SCH (11:27)
[2016-12-28 11:30] VITALS: BP_SYST 144
--- NOTE | 2016-12-28 11:30 | NUR ---
BLOOD SUGAR 354, TEMPERATURE 104 BLOOD SUGAR COVERED PER SLIDING SCALE, TYLENOL ADMINISTERED FOR FEVER, ICE PACKS APPLIED, COOL PACKS CHANGED TO UNDER ARMS NECK AND GROIN, WILL CONTINUE TO MONITOR
[2016-12-28 12:12] LABS: NEUTROPHILS % (AUTO) 83.8 % (40.0-70.0)
[2016-12-28] MEDS: metroNIDAZOLE 250 mg/NS 50 ML IV SCH ×2 (12:55→23:09)
--- NOTE | 2016-12-28 13:00 | NUR ---
TEMPERATURE 98.9, PATIENT HAS EYES OPEN, MOVING AROUND IN BED, APPEARS MORE AWAKE, ORAL CARE DONE, PT SUCTIONED VIA MOUTH AND TRACH, PT TOLERATED WELL, PT REPOSITIONED WITH PILLOW SUPPORT, WILL CONTINUE TO MONITOR
--- NOTE | 2016-12-28 15:00 | NUR ---
TEMPERATURE 98.2, RT IN ROOM , PT SUCTIONED, EYES OPEN, AWAKE, MOVING AROUND IN BED, SAFETY MEASURES IN PLACE, CALL LIGHT WITH REACH, WILL CONTINUE TO MONITOR
[2016-12-28 16:08] VITALS: BP_SYST 124
--- NOTE | 2016-12-28 17:00 | NUR ---
BLOOD SUGAR 163, COVERED PER SLIDING SCALE
--- NOTE | 2016-12-28 17:20 | NUR ---
pharmacy called for procrit due at 1700, not available, per pharmacists they are working on, will bring as soon as possible
[2016-12-28] MEDS: DAPTOmycin 350 MG in NS 50 ML IV SCH (18:05)
[2016-12-28] MEDS: EPOETIN ALFA 3,000 UNITS/ML VIAL SUBCUT SCH (18:05)
--- NOTE | 2016-12-28 19:00 | NUR ---
CLOSING NOTE PT LAYING IN SEMIFOWERS, RESTING, NO S.S OF ACUTE DISTRESS OR PAIN, NO INCREASED TEMPERATURE, PT ON VENT, SETTINGS NOTED, GTUBE FEEDING IN PLACE AND INFUSING AT ORDER RATE, 10CC RESIDUAL NOTED, QIU CATHETER IN PLACE AND DRAINING MANA URINE TO GRAVITY, HEEL BOOTS IN PLACE, ALL NEEDS ATTENDED TO THROUGHOUT SHIFT, SAFETY MEASURES MAINTAINED, ISOLATION AND SEIZURE PRECAUTIONS MAINTAINED, NO SEIZURE ACTIVITY NOTED, WILL GIVE REPORT TO FOLLOWING SHIFT
--- NOTE | 2016-12-28 19:35 | NUR ---
OPENING NOTES RECEIVED REPORT AT BEDSIDE. PATIENT IS AWAKE AND TRACKING. AFEBRILE, VENT SETTINGS AC 20, TV 450, FIO2 40, PEEP 5. IV PATENT AND INFUSING WIT NO SIGNS OF INFILTRATION. G-TUBE INFUSING, QIU CATHETER DRAINING BY GRAVITY. SEIZURE AND FALL PRECAUTIONS IN PLACE, BED ALARM ON, CALL LIGHT WITHIN REACH.
[2016-12-28 20:47] VITALS: BP_SYST 120
[2016-12-28 21:10] VITALS: BP_SYST 120
--- NOTE | 2016-12-28 22:30 | NUR ---
meds/round. meds. resting in bed with no distress, tolerated med well;call light in reach/bed in low position,bed alarm on,no s/s pain noted at this time.
[2016-12-29] VITALS (8 sets, daily range): BP systolic 106–139
--- NOTE | 2016-12-29 00:30 | NUR ---
Round. re-position in bed,HOB kept elevated,call light in reach,bed in low position, bed alarm on, no s/s of pain noted at this time.
--- NOTE | 2016-12-29 02:30 | NUR ---
Round. Resting in bed with no distress,contact isolation maintained, GT feeding in place infusing Diabetisource at 40ml/hr;call light in reach, bed in low position, bed alarm on.
[2016-12-29] MEDS: IPRATROPIUM/ALBUTEROL SULFATE 3 ML AMPUL.NEB INH SCH ×5 (05:01→23:18)
[2016-12-29] MEDS: ACETAMINOPHEN 650 MG/20.3 ML UDC GT PRN ×2 (05:22→11:44)
--- NOTE | 2016-12-29 05:32 | NUR ---
increased temp. tylenol 650mg GT given for temp99.5,no distress noted,HOB elevated,call light in reach,bed in low position, bed alarm on.
[2016-12-29] MEDS: metroNIDAZOLE 250 mg/NS 50 ML IV SCH ×3 (06:27→22:02)
[2016-12-29] MEDS: INSULIN REGULAR, HUMAN 100 UNITS/ML, 10 ML VIAL (novoLIN R) SUBCUT PRN (06:34)
--- NOTE | 2016-12-29 07:00 | NUR ---
Closing notes. condition stable,slept all night,tolerated Meds well,GT feeding with [id number] at 2100,50ml at 0600,no aspiration occurred during the shift, will continue with current plan of care;now,resting in bed with no distress,call light in reach,bed in low position, bed alarm on.
[2016-12-29 07:50] LABS: BASOPHILS # (AUTO) 0.1 K/uL (0.0-0.2); BASOPHILS % (AUTO) 0.7 % (0.0-2.0); EOSINOPHILS # (AUTO) 0.4 K/uL (0.0-0.4); EOSINOPHILS % (AUTO) 2.8 % (0.0-4.0); HEMATOCRIT 22.4 % (36-54); HEMOGLOBIN 7.4 g/dL (14.0-18.0); LYMPHOCYTES # (AUTO) 1.4 K/uL (1.0-5.5); LYMPHOCYTES % (AUTO) 9.4 % (20.5-51.5); MEAN CORPUSCULAR HEMOGLOBIN 31 pg (27-31); MEAN CORPUSCULAR HGB CONC 33 % (32-36); MEAN CORPUSCULAR VOLUME 93 fL (79.0-98.0); MONOCYTES # (AUTO) 0.8 K/uL (0.0-1.0); MONOCYTES % (AUTO) 5.2 % (1.7-9.3); NEUTROPHILS # (AUTO) 12.4 K/uL (1.8-7.7); NEUTROPHILS % (AUTO) 81.9 % (40.0-70.0); PLATELET COUNT (AUTO) 657 K/uL (130-430); RED BLOOD CELL COUNT(AUTO) 2.41 MIL/uL (4.2-6.2); RED CELL DISTRIBUTION WIDTH 15.6 % (9.0-15.0); WHITE BLOOD COUNT (AUTO) 15.1 K/uL (4.8-10.8)
[2016-12-29 07:58] LABS: CALCIUM 8.7 mg/dL (8.4-11.0); CREATININE 3.55 mg/dL (0.55-1.30); POTASSIUM 4.4 mmol/L (3.5-5.1)
--- NOTE | 2016-12-29 08:06 | NUR ---
INITIAL NOTE PT LAYING IN SEMI FOWLERS, AWAKE, TRACKS MOVEMENT WITH EYES, NO S/S OF ACUTE DISTRESS OR PAIN, VENT NOTED WITH SETTING AC MODE, RR 20 FIO2 40% TV 450 PEEP 5, VSS, TEMPERATURE 98.3, BLOOD SUGAR DURING REPORT 159 AND COVERED PER SLIDING SCALE, IV TO LEFT HAND INTACT, SALINE LOCKED, GTUBE IN PLACE AND INFUSING AND ORDERED RATE, QIU CATHETER IN PLACE AND DRAINING TO GRAVITY, BILATERAL HEEL BOOTS NOTED, SEIZURE/ISOLATION/ASPIRATION PRECAUTIONS IN PLACE, WILL MONITOR PATIENT CLOSELY
[2016-12-29] MEDS: FERROUS SULFATE 300 MG/5 ML UDC PO SCH ×2 (08:49→22:04)
[2016-12-29] MEDS: LACTULOSE 20 GM/30 ML UDC GT SCH ×2 (08:49→22:04)
[2016-12-29] MEDS: ASCORBIC ACID 500 MG TABLET GT SCH ×2 (08:49→22:04)
[2016-12-29] MEDS: SEVELAMER HCL 800 MG TABLET GT SCH ×3 (08:49→18:16)
[2016-12-29] MEDS: LISINOPRIL 20 MG TABLET GT SCH (08:50)
[2016-12-29] MEDS: amLODIPine BESYLATE 10 MG TABLET GT SCH (08:51)
[2016-12-29] MEDS: METOPROLOL SUCCINATE 50 MG TAB.SR.24H (TOPROL XL) PO SCH (08:51)
[2016-12-29] MEDS: levETIRAcetam 500 MG TABLET GT SCH ×2 (08:51→22:04)
[2016-12-29] MEDS: HEPARIN SODIUM,PORCINE 5000 UNITS/ML VIAL SUBCUT SCH ×2 (08:52→22:00)
[2016-12-29] MEDS: MUPIROCIN 2% TOPICAL OINTMENT 22 GM TP SCH ×2 (08:57→22:03)
--- NOTE | 2016-12-29 10:00 | NUR ---
GTUBE RESIDUAL 40ML, FLUSHED WITH 200CC WATER, ORAL CARE PROVIDED, PT TOLERATED WELL, PT REPOSITIONED TO OPPOSITE SIDE WILL PILLOW SUPPORT, SAFETY MEASURES IN PLACE, NO S/S OF DISTRESS, WILL CONTINUE TO MONITOR PT CLOSELY
[2016-12-29] MEDS: cefTRIAXone 1 GM in D5W 50 ML IV SCH (11:45)
--- NOTE | 2016-12-29 12:00 | NUR ---
BLOOD SUGAR 73, GIVEN APPLE JUICE VIA GTUBE AND NOTED GTUBE ON AND RUNNING, WILL MONITOR, TEMPERATURE NOTED TO BE 99.8, TYLENOL GIVEN AND COOLING MEASURES INITIATED, WILL FOLLOW UP
--- NOTE | 2016-12-29 14:00 | NUR ---
PATIENT HAD BOWEL MOVEMENT, PT CLEANED AND CHANGED, REPOSITIONED WITH PILLOW SUPPORT, PT TOLERATED WELL, SAFETY MEASURES IN PLACE, PT IN SEMI FOLWERS, WILL CONTINUE TO MONITOR
--- NOTE | 2016-12-29 16:50 | NUR ---
BLOOD SUGAR 39, PT AWAKE, ALERT, TRACKS MOVEMENT WITH EYES, NO S/S OF HYPOGLYCEMIA NOTED HYPOGLYCEMIA PROTOCOL INITIATED, DEXTROSE 50% 50ML GIVEN IV, PT TOLERATED WELL, DR SHARPE CALLED TO NOTIFY WILL STAY WITH PATIENT AND REASSESS
[2016-12-29] MEDS ORDERED: DEXTROSE 50% JECT 50 ML DISP.SYRIN ONE (17:00)
[2016-12-29] MEDS ORDERED: *CUBICIN 6 MG/KG Q48H/PHARMACY XX PRN (17:00)
[2016-12-29] MEDS ORDERED: DEXTROSE 50% JECT 50 ML DISP.SYRIN IVP ONE (17:15)
--- NOTE | 2016-12-29 17:20 | NUR ---
BLOOD REASSESSES 116, PT AWAKE ALERT, NO S/S OF ACUTE DISTRESS, SPOKE WITH DR SLY COHEN STATED TO HOLD DM MEDICATIONS THIS EVENING AND RESUME IN AM. WILL REPORT TO FOLLOWING SHIFT
--- NOTE | 2016-12-29 18:45 | NUR ---
CLOSING NOTE PT LAYING IN SEMIFOWLERS, RESTING, NO S/S OF ACUTE DISTRESS OR PAIN, VSS, TRACH IN PLACE, VENT SETTINGS NOTED, GTUBE INFUSING AT ORDERED RATE, QIU CATHETER IN PLACE AND DRAINING TO GRAVITY, HEEL BOOTS IN PLACE, ALL NEEDS ATTENDED TO THROUGHOUT SHIFT, SAFETY/ISOLATION/ ASPIRATION PRECAUTIONS MAINTAINED, WILL GIVE REPORT TO FOLLOWING SHIFT
--- NOTE | 2016-12-29 19:30 | NUR ---
OPENING NOTES RECEIVED REPORT, PATIENT IS AFEBRILE, STABLE. NO S/S OF DISTRESS NOTED. FALL, ASPIRATION PRECAUTIONS IN PLACE, BED IN LOWEST POSITION, BED ALARM ON, CALL LIGHT IN REACH.
--- NOTE | 2016-12-29 20:43 | NUR ---
OPENING NOTES RECEIVED REPORT AT BEDSIDE. PATIENT IS AWAKE AND non verbal. no fever, VENT SETTINGS AC 20, TV 450, FIO2 40, PEEP 5. IV PATENT AND INFUSING WITh NO SIGNS OF INFILTRATION. G-TUBE INFUSING, QIU CATHETER DRAINING BY GRAVITY. SEIZURE AND FALL PRECAUTIONS IN PLACE, BED ALARM ON, CALL LIGHT WITHIN REACH.
--- NOTE | 2016-12-29 22:00 | NUR ---
WOUND CARE PROVIDED. PT. TOLERATED.
--- NOTE | 2016-12-29 22:30 | NUR ---
RN ROUNDS PATIENT IN SEMI-GALLAGHER'S POSITION, VENT, TUBE FEEDING, IV ALL FUNCTIONING ORDERED. YELLOW URINE WITH SEDIMENT DRAINING BY GRAVITY FROM QIU CATHETER. NO S/S OF ACUTE DISTRESS NOTED. BED IN LOWEST POSITION, BED ALARM ON, CALL LIGHT WITHIN REACH.
[2016-12-30] VITALS (8 sets, daily range): BP systolic 112–136
--- NOTE | 2016-12-30 00:30 | NUR ---
RN ROUNDS NO CHANGE IN CONDITION. PT IS AFEBRILE AND STABLE.
--- NOTE | 2016-12-30 01:00 | NUR ---
IV INFILTRATED. NEW IV SITE PLACEMENT AFTER 1 ATTEMPT. RIGHT FOREARM 22 GAUGE. WILL OBSERVE FOR ANY SIGNS OF INFILTRATION.
--- NOTE | 2016-12-30 01:30 | NUR ---
pt is awake and quiet Addendum: 12/30/16 at 0223 stephen North CNA wrong pt
--- NOTE | 2016-12-30 01:43 | NUR ---
RN ROUNDS PERFORMED ORAL CARE, PT TOLERATED. NO S/S OF ACUTE DISTRESS NOTED. FALL PRECAUTIONS IN PLACE. BED ALARM ON, CALL LIGHT WITHIN REACH.
--- NOTE | 2016-12-30 03:43 | NUR ---
RN ROUNDS NO CHANGE IN CONDITION.
[2016-12-30] MEDS: IPRATROPIUM/ALBUTEROL SULFATE 3 ML AMPUL.NEB INH SCH ×6 (04:28→23:14)
--- NOTE | 2016-12-30 05:30 | NUR ---
RN ROUNDS NO CHANGE IN CONDITION.
--- NOTE | 2016-12-30 05:30 | NUR ---
RN ROUNDS NO CHANGE IN CONDITION, PATIENT RESTING. NO S/S OF ACUTE DISTRESS NOTED.
[2016-12-30] MEDS: metroNIDAZOLE 250 mg/NS 50 ML IV SCH ×3 (06:35→22:05)
--- NOTE | 2016-12-30 06:40 | NUR ---
ACCUCHECK 580 CRITICAL HIGH, COVERED WITH 12 UNITS REGULAR INSULIN, PT RESPIRATIONS 20, SKIN DRY, WARM. PT. EYES CLOSED, LETHARGIC, PATIENT RESPONDED TO DEEP STIMULI. DR. DELL SCHMITZ.
[2016-12-30] MEDS: INSULIN REGULAR, HUMAN 100 UNITS/ML, 10 ML VIAL (novoLIN R) SUBCUT PRN ×4 (06:43→17:35)
--- NOTE | 2016-12-30 06:44 | NUR ---
DR. SHARPE ANSWERED PAGE INFORMED OF PT'S BLOOD SUGAR, 580, INSTRUCTED TO RECHECK BLOOD SUGAR IN ONE HOUR AT 0740. NO NEW ORDERS.
[2016-12-30 06:46] LABS: BASOPHILS % (AUTO) 0.2 % (0.0-2.0); EOSINOPHILS # (AUTO) 0.2 K/uL (0.0-0.4); EOSINOPHILS % (AUTO) 1.5 % (0.0-4.0); HEMATOCRIT 24.3 % (36-54); HEMOGLOBIN 7.8 g/dL (14.0-18.0); LYMPHOCYTES % (AUTO) 7.6 % (20.5-51.5); MEAN CORPUSCULAR HEMOGLOBIN 31 pg (27-31); MEAN CORPUSCULAR HGB CONC 32 % (32-36); MEAN CORPUSCULAR VOLUME 95 fL (79.0-98.0); MONOCYTES # (AUTO) 0.9 K/uL (0.0-1.0); MONOCYTES % (AUTO) 6.6 % (1.7-9.3); NEUTROPHILS # (AUTO) 10.9 K/uL (1.8-7.7); NEUTROPHILS % (AUTO) 84.1 % (40.0-70.0); PLATELET COUNT (AUTO) 655 K/uL (130-430); RED BLOOD CELL COUNT(AUTO) 2.57 MIL/uL (4.2-6.2); RED CELL DISTRIBUTION WIDTH 15.5 % (9.0-15.0)
[2016-12-30 06:56] LABS: ALBUMIN 1.6 g/dL (3.4-4.8); CALCIUM 8.5 mg/dL (8.4-11.0); CREATININE 3.66 mg/dL (0.55-1.30); POTASSIUM 5.4 mmol/L (3.5-5.1); TOTAL BILIRUBIN 0.8 mg/dL (0.0-1.0)
--- NOTE | 2016-12-30 07:30 | NUR ---
SUSANA RECHECKED 518 DR[address] SHARPE ON ROUNDS, NOTIFIED, ORDERED 12 UNITS REGULAR INSULIN.
--- NOTE | 2016-12-30 07:44 | NUR ---
AM ROUNDS: No s/s of distress noted. Will continue to monitor.
[2016-12-30] MEDS ORDERED: INSULIN REGULAR, HUMAN 100 UNITS/ML, 10 ML VIAL SUBCUT ONE ×2 (07:45→13:15)
--- NOTE | 2016-12-30 07:56 | NUR ---
CLOSING NOTES PATIENT IS RESTING, EYES CLOSED. AFEBRILE, VENT SETTINGS AC 20, TV 450, FIO2 40, PEEP 5. IV PATENT AND INFUSING WIT NO SIGNS OF INFILTRATION. G-TUBE INFUSING, QIU CATHETER DRAINING BY GRAVITY. BLOOD GLUCOSE 580, COVERED WITH SLIDING SCALE. DR. SHARPE ON ROUNDS, RE CHECKED SUGAR 518, PLACED ORDERS FOR ONE TIME INSULIN COVERAGE. SEIZURE AND FALL PRECAUTIONS IN PLACE, BED ALARM ON, CALL LIGHT WITHIN REACH. ENDORSED CARE TO CHRISTOPH LOPEZ.
--- NOTE | 2016-12-30 08:00 | NUR ---
AM ROUNDS: No s/s of distress noted. Will continue to monitor.
[2016-12-30] MEDS: LACTULOSE 20 GM/30 ML UDC GT SCH ×2 (09:04→22:00)
[2016-12-30] MEDS: SEVELAMER HCL 800 MG TABLET GT SCH ×3 (09:04→17:04)
[2016-12-30] MEDS: levETIRAcetam 500 MG TABLET GT SCH ×2 (09:05→22:00)
[2016-12-30] MEDS: amLODIPine BESYLATE 10 MG TABLET GT SCH (09:06)
[2016-12-30] MEDS: ASCORBIC ACID 500 MG TABLET GT SCH ×2 (09:06→22:00)
[2016-12-30] MEDS: LISINOPRIL 20 MG TABLET GT SCH (09:06)
[2016-12-30] MEDS: FERROUS SULFATE 300 MG/5 ML UDC PO SCH ×2 (09:07→22:00)
[2016-12-30] MEDS: METOPROLOL SUCCINATE 50 MG TAB.SR.24H (TOPROL XL) PO SCH (09:07)
[2016-12-30] MEDS: HEPARIN SODIUM,PORCINE 5000 UNITS/ML VIAL SUBCUT SCH ×2 (09:10→22:04)
[2016-12-30] MEDS: MUPIROCIN 2% TOPICAL OINTMENT 22 GM TP SCH ×2 (09:20→22:01)
[2016-12-30] MEDS: cefTRIAXone 1 GM in D5W 50 ML IV SCH (09:32)
--- NOTE | 2016-12-30 10:01 | NUR ---
PATIENT RESTING: Patient resting quietly. No acute distress noted. Will continue to monitor.
--- NOTE | 2016-12-30 11:16 | NUR ---
MD SCHMITZ CALLED SUSHIL MORTENSEN AT [phone] LEFT A VOICEMAIL MESSAGE.
--- NOTE | 2016-12-30 12:07 | NUR ---
PAGED PAGED MALIK YANG AT [phone] LEFT A VOICEMAIL WITH .
--- NOTE | 2016-12-30 12:34 | NUR ---
PATIENT RESTING: Patient resting quietly. No acute distress noted. Will continue to monitor.
--- NOTE | 2016-12-30 12:47 | NUR ---
COMMUNICATION: Spoke with Dr. You about micro results and when he anticipated permacath placement. He stated he would like to do it tomorrow.
--- NOTE | 2016-12-30 13:02 | NUR ---
PAGE CALLED FOR DR. SHARPE. SPOKE TO FELIPE, DIALED [phone].
--- NOTE | 2016-12-30 14:47 | NUR ---
PATIENT RESTING: Patient resting quietly. No acute distress noted. Will continue to monitor.
--- NOTE | 2016-12-30 16:26 | NUR ---
Nutrition F/U Admitting Diagnosis Aspiration pneumonia Reviewed Pertinent Medical/Surgical Hx Patient Medical record Medical History Comment: DM, HTN, ESRD w/ HD, chronic respiratory failure, CVA, muscle weakness, unsteady gait per MD notes Subjective Information Pt seen resting in bed, +trach to vent, w/ TF infusing as per MD orders. Pt is confused/disoriented. Per nursing notes, possible permacath placement tomorrow by surgeon. Per EMR, TF Intakes: 480 ml 12/30/16. Residuals: 0 ml 12/30/16. Abd is soft and non-distended w/ active bowel sounds. I/O: 580/0 (+580 ml) per 12 hours. Pt is likely meeting tolerating TF and meeting optimal nutritional needs. Pt is not appropriate for nutrition education. Current Diet Order/Nutrition Support Diabetisource AC at 40 ml/hr, Prosource daily, Free Water Flush: 200 Ml Q6H via GT Patient/Significant Other Unable To Verbalize Education Provided Not Indicated Pertinent Medications levemir, renagel, zinc sulfate, ferrous sulfate, VIT C, lactulose, SSI Pertinent Labs WBC 13 H, H/H 7.8 L/24.3 L, Na 125 L, BUN 83 H, eGFR 18 L, BG 599 H, POC BG 425 H, HgA1c 7.6 J (12/21/16) Height (Feet) 5 feet Height (Inches) 5.00 inches Weight (Pounds) 130 pounds (admission) BEDSCALE WT: 144 lb (12/26/16); 145 lb (12/30/16) -- possibly inaccurate as bedscale may not have been calibrated properly Weight (Calculated Kilograms) 58.517970 kilograms Patient Weight 58.967 kg Body Mass Index 21.63 kg/m2 %IBW 95 Marydel/Adjusted Body Weight IBW: 136 lb, 62 kg Weight Status Appropriate Skin Integrity Comment: Trung scale: 13; per Job Press Operator note 12/26/16: 1. Right Buttock: Multiple wounds, probably self inflected from patient scratching himself, present on admission. 2. Right Buttock, medial to wound 1: Wound, present on admission. 3. Left posterior Heel: Chronic unstageable pressure ulcer, present on admission. 4. Right Heel: Legible redness, present on admission. 5. Right Medial Great Toe: Chronic unstageable pressure ulcer, present on admission. Estimated Energy Expenditure (kcals/day) 9714-2668 kcal/day (BEE x 1-1.2 CBW for maintenance) Estimated Protein Required (g/day) 71-83 gm/day (1.2-1.4 gm/kg CBW for ESRD on HD) Estimated Fluid Required (l/day) Per MD (ESRD) Problem/Etiology/Signs/Symptoms (modified) Inadequate enteral nutrition related to maintenance as evidenced by held TF, and need for GI workups. *resolved Increased nutritional needs related to wound healing as evidenced by estimated nutritional requirements for multiple wounds. Expected Outcomes/Goals - Monitor provision of enteral nutrition w/ goal of pt tolerance and meeting at least 75% of estimated nutritional needs, labs trending WNL, normal GI function, and skin integrity/wt maintenance Dietitian Recommendations * Recommend continuing Diabetisource AC at 40 ml/hr (goal rate), Prosource daily, Free Water Flush: 200 ml q6 via GT Provides: 1212 kcal/day, 73 gm protein/day, and 1585 ml free water/day Meets: 92% of lower end of estimated caloric needs and and 103% of lower end of estimated protein needs Follow Up Moderate Risk: F/U in 3-5 days
[2016-12-30] MEDS ORDERED: VANCOMYCIN HCL 750 MG in NS 250 ML IV SCH (17:00)
--- NOTE | 2016-12-30 18:19 | NUR ---
PAGED PAGED DOCTOR FUNMI MARTINEZ
--- NOTE | 2016-12-30 18:43 | NUR ---
2 PAGE CALLED AGAIN FOR GEOFF CHOUDHARY
--- NOTE | 2016-12-30 18:48 | NUR ---
CLOSING NOTE: All needs met. No change in assessment. Will endorse to NOC shift nurse.
[2016-12-30] MEDS ORDERED: DAPTOmycin 350 MG in NS 50 ML IV SCH (19:00)
--- NOTE | 2016-12-30 19:40 | NUR ---
OPENING NOTES RECEIVED REPORT AT BEDSIDE. PATIENT IS AWAKE, TRACKING, NON VERBAL. AFEBRILE, VENT SETTINGS AC 20, TV 450, FIO2 40, PEEP 5, O2 2L. IV PATENT AND INFUSING WITH NO SIGNS OF INFILTRATION. G-TUBE INFUSING, QIU CATHETER DRAINING BY GRAVITY. FOAM BOOTS ON BOTH FEET. SEIZURE, FALL, AND ISOLATION PRECAUTIONS IN PLACE, BED ALARM ON, CALL LIGHT WITHIN REACH.
--- NOTE | 2016-12-30 21:40 | NUR ---
RN ROUNDS PATIENT RESTING. NO CHANGE IN CONDITION.
--- NOTE | 2016-12-30 23:40 | NUR ---
RN ROUNDS PATIENT RESTING. AWAKE, TRACKING, IV PATENT ANTIBIOTICS INFUSING NO SIGNS OF INFILTRATION PRESENT. TUBE-FEEDING INFUSING. VENT SETTINGS DOUBLE CHECKED. NO S/S OF ACUTE DISTRESS NOTED. FALL, SEIZURE, ASPIRATION, ISOLATION PREACUTIONS IN PLACE. CALL LIGHT WITHIN REACH. WILL CONTINUE TO MONITOR FREQUENTLY.
[2016-12-31] VITALS (7 sets, daily range): BP systolic 120–141
--- NOTE | 2016-12-31 | NUR ---
RN ROUNDS PATIENT LOOKS PALE, LETHARGIC. SPOT CHECK ACCUCHECK, BLOOD SUGAR 115. FALL, SEIZURE, ISOLATION PRECAUTIONS IN PLACE. WILL CONTINUE TO MONITOR. CALL LIGHT WITHIN REACH.
--- NOTE | 2016-12-31 02:00 | NUR ---
RN ROUNDS NO CHANGE IN CONDITION. NO S/S OF ACUTE DISTRESS NOTED.
--- NOTE | 2016-12-31 02:49 | NUR ---
RN ROUNDS PATIENT SLEEPING. NO CHANGE IN CONDITION. NO S/S OF ACUTE DISTRESS NOTED. CALL LIGHT WITHIN REACH.
--- NOTE | 2016-12-31 04:00 | NUR ---
RN ROUNDS PATIENT HAD A LARGE SOFT BM, PT WIPED EXCREMENT ALL OVER FACE, CHEST, HANDS. PT CLEANED, ALL WOUND DRESSINGS CHANGED. TRACH BARRIER GAUZE CHANGED.
[2016-12-31] MEDS: IPRATROPIUM/ALBUTEROL SULFATE 3 ML AMPUL.NEB INH SCH ×6 (04:25→23:31)
--- NOTE | 2016-12-31 05:31 | NUR ---
RN ROUNDS ASSISTED PATIENT WITH SUCTIONING, INEFFECTIVE COUGH. THICK SECRETIONS.
--- NOTE | 2016-12-31 06:45 | NUR ---
BLOOD SUGAR 308 COVERED WITH 8 UNITS SLIDING SCALE INSULIN
[2016-12-31] MEDS: metroNIDAZOLE 250 mg/NS 50 ML IV SCH ×3 (06:53→21:59)
[2016-12-31] MEDS: INSULIN REGULAR, HUMAN 100 UNITS/ML, 10 ML VIAL (novoLIN R) SUBCUT PRN ×3 (06:55→17:31)
--- NOTE | 2016-12-31 06:58 | NUR ---
CLOSING NOTES PATIENT IS AWAKE, TRACKING, NON VERBAL. AFEBRILE, VENT SETTINGS AC 20, TV 450, FIO2 40, PEEP 5, O2 2L. IV PATENT AND INFUSING WITH NO SIGNS OF INFILTRATION. G-TUBE INFUSING, QIU CATHETER DRAINING BY GRAVITY. FOAM BOOTS ON BOTH FEET. ALL NEEDS MET THIS SHIFT. SEIZURE, FALL, AND ISOLATION PRECAUTIONS IN PLACE, BED ALARM ON, CALL LIGHT WITHIN REACH.WILL ENDORSE CARE TO DAYSHIFT NURSE
[2016-12-31 07:30] LABS: BASOPHILS % (AUTO) 0.2 % (0.0-2.0); EOSINOPHILS # (AUTO) 0.5 K/uL (0.0-0.4); HEMATOCRIT 22.5 % (36-54); HEMOGLOBIN 7.5 g/dL (14.0-18.0); LYMPHOCYTES # (AUTO) 1.3 K/uL (1.0-5.5); LYMPHOCYTES % (AUTO) 10.4 % (20.5-51.5); MEAN CORPUSCULAR HEMOGLOBIN 31 pg (27-31); MEAN CORPUSCULAR HGB CONC 33 % (32-36); MEAN CORPUSCULAR VOLUME 94 fL (79.0-98.0); MONOCYTES # (AUTO) 0.8 K/uL (0.0-1.0); MONOCYTES % (AUTO) 6.4 % (1.7-9.3); NEUTROPHILS # (AUTO) 10.3 K/uL (1.8-7.7); PLATELET COUNT (AUTO) 673 K/uL (130-430); RED BLOOD CELL COUNT(AUTO) 2.41 MIL/uL (4.2-6.2); RED CELL DISTRIBUTION WIDTH 16.2 % (9.0-15.0); WHITE BLOOD COUNT (AUTO) 12.9 K/uL (4.8-10.8)
[2016-12-31 08:21] LABS: CALCIUM 8.4 mg/dL (8.4-11.0); CREATININE 3.95 mg/dL (0.55-1.30); PHOSPHORUS 5.7 mg/dL (2.7-4.5)
--- NOTE | 2016-12-31 08:23 | NUR ---
AM ROUNDS: No s/s of distress noted. Will continue to monitor.
[2016-12-31] MEDS: LACTULOSE 20 GM/30 ML UDC GT SCH ×2 (08:29→21:58)
[2016-12-31] MEDS: FERROUS SULFATE 300 MG/5 ML UDC PO SCH ×2 (08:29→21:59)
[2016-12-31] MEDS: levETIRAcetam 500 MG TABLET GT SCH ×2 (08:30→21:59)
[2016-12-31] MEDS: SEVELAMER HCL 800 MG TABLET GT SCH ×3 (08:30→17:28)
[2016-12-31] MEDS: ASCORBIC ACID 500 MG TABLET GT SCH ×2 (08:30→21:59)
[2016-12-31] MEDS: cefTRIAXone 1 GM in D5W 50 ML IV SCH (08:31)
[2016-12-31] MEDS: HEPARIN SODIUM,PORCINE 5000 UNITS/ML VIAL SUBCUT SCH ×2 (08:33→21:57)
[2016-12-31] MEDS: MUPIROCIN 2% TOPICAL OINTMENT 22 GM TP SCH ×2 (08:38→22:00)
[2016-12-31] MEDS: amLODIPine BESYLATE 10 MG TABLET GT SCH (09:00)
[2016-12-31] MEDS: METOPROLOL SUCCINATE 50 MG TAB.SR.24H (TOPROL XL) PO SCH (09:00)
[2016-12-31] MEDS: LISINOPRIL 20 MG TABLET GT SCH (09:00)
--- NOTE | 2016-12-31 10:21 | NUR ---
PATIENT RESTING: Patient resting quietly. No acute distress noted. Will continue to monitor.
[2016-12-31] MEDS ORDERED: HEPARIN SODIUM,PORCINE 5000 UNITS/ML VIAL ONE (10:50)
--- NOTE | 2016-12-31 11:15 | NUR ---
TOMAS CATHETER PLACEMENT: Performed by Dr. You.
--- NOTE | 2016-12-31 11:26 | NUR ---
DISCHARGE PLANNING Returned call to Gerardo at [facility] stated patient able to discharge back assigned to room 111A RN to report [phone], bed available anytime. Gerardo requested to be notified estimated time of patient discharge. YAMINI Made aware and will follow up with MD. Meanwhile; Any ambulance can be arranged. Updated transportation packet in nurses station.
--- NOTE | 2016-12-31 12:05 | NUR ---
IV PLACEMENT: # 22 gauge angiocath placed to left forearm. Use of asceptic technique. Opsite placed over site. Blood return noted. Flushed with 5 cc of normal saline. No evidence of infiltration noted. Patient tolerated well.
--- NOTE | 2016-12-31 14:00 | NUR ---
HEMODIALYSIS: HD nurse Greenberg at bedside.
--- NOTE | 2016-12-31 14:29 | NUR ---
QIU CATHETER: D/C'ed. Condom catheter put in place.
--- NOTE | 2016-12-31 16:09 | NUR ---
PATIENT RESTING: Patient resting quietly. No acute distress noted. Hemodialysis nurse at bedside. Will continue to monitor.
--- NOTE | 2016-12-31 17:08 | NUR ---
MEDICATION: Epogen not available. Spoke with Manpreet in pharmacy.
[2016-12-31] MEDS: EPOETIN ALFA 3,000 UNITS/ML VIAL SUBCUT SCH (17:28)
--- NOTE | 2016-12-31 18:10 | NUR ---
CLOSING NOTE: All needs met. Reynold Catheter placed to right chest today. Hemodialysis with 3L out today. Patient to have 1 unit PRBC transufed tonight. Will endorse to NOC shift nurse.
--- NOTE | 2016-12-31 19:10 | NUR ---
PM Report and initial note: Reported received at this time. Patient appears resting in bed comfortably, with trach and vent. Patient awake, nonverbal, and unable to follow commands. Patient with condom catheter draining clear yellow urine. Reynold catheter noted with dressing clean and dry on right chest. No s/x of cardiac or respiratory distress at this time.
--- NOTE | 2016-12-31 22:15 | NUR ---
Medication Administered medications for 2100 at this time through [employer]. Flushed 200ml per MD order [id number]
--- NOTE | 2016-12-31 22:23 | NUR ---
Repositioned and turned Turned patient to his side, pillow placed on back for support, off loading heels with foam boots on randy feet.
--- NOTE | 2017-01-01 00:48 | NUR ---
BT INITIATION: Consent verified of agreeing to administration of blood. Blood has been type and crossmatched. Blood sent from blood bank. Information on unit of blood checked against patient wristband at bedside by two nurses. All information matches. Patient or responsible constitution party informed of potential complications associated with blood transfusion. Informed of possible transfusion reaction symptoms. Vital signs taken within 5 minutes prior to initiation of transfusion. RN will remain with patient for first 15 minutes of transfusion at which time vital signs will be re-assessed.
[2017-01-01 01:18] VITALS: BP_SYST 137
--- NOTE | 2017-01-01 01:25 | NUR ---
Blood transfusion Patient receiving blood transfusion at this time. No s/sx of reaction to blood. Vital signs stable.
--- NOTE | 2017-01-01 03:16 | NUR ---
Completed Blood transfusion Patient blood transfusion completed. No s/sx of reaction. Patient vital signs stable.
[2017-01-01 03:26] VITALS: BP_SYST 140
[2017-01-01] MEDS: IPRATROPIUM/ALBUTEROL SULFATE 3 ML AMPUL.NEB INH SCH ×6 (03:30→23:01)
--- NOTE | 2017-01-01 04:26 | NUR ---
Rounds Patient resting in bed comfortably, heels offloading and patient in turned position. Replaced condom catheter and tubing due to it being soiled. Patient vital signs within normal range. Linens changed.
[2017-01-01] MEDS: metroNIDAZOLE 250 mg/NS 50 ML IV SCH ×3 (05:04→21:23)
--- NOTE | 2017-01-01 06:00 | NUR ---
ROUNDS Patient resting comfortably, no s/sx of distress or pain. Bed in lowest position, bed alarm on. Vital signs stable.
--- NOTE | 2017-01-01 06:28 | NUR ---
Closing note Patient resting at this time. Patient appears in no distress. Vital signs within normal baseline for patient. No s/sx of cardiac or respiratory distress noted. Patient with gtube feeding infusing, site clean and dry with dressing. Condom catheter in place, clean and dry. Bed in lowest position and alarm on with seizure pads to rails.
[2017-01-01 06:42] LABS: BASOPHILS # (AUTO) 0.1 K/uL (0.0-0.2); BASOPHILS % (AUTO) 0.5 % (0.0-2.0); EOSINOPHILS # (AUTO) 0.2 K/uL (0.0-0.4); EOSINOPHILS % (AUTO) 1.8 % (0.0-4.0); HEMATOCRIT 27.8 % (36-54); HEMOGLOBIN 9.3 g/dL (14.0-18.0); LYMPHOCYTES # (AUTO) 0.9 K/uL (1.0-5.5); LYMPHOCYTES % (AUTO) 7.2 % (20.5-51.5); MEAN CORPUSCULAR HEMOGLOBIN 31 pg (27-31); MEAN CORPUSCULAR HGB CONC 33 % (32-36); MONOCYTES # (AUTO) 0.8 K/uL (0.0-1.0); MONOCYTES % (AUTO) 6.1 % (1.7-9.3); NEUTROPHILS # (AUTO) 10.8 K/uL (1.8-7.7); NEUTROPHILS % (AUTO) 84.4 % (40.0-70.0); PLATELET COUNT (AUTO) 600 K/uL (130-430); RED BLOOD CELL COUNT(AUTO) 3.03 MIL/uL (4.2-6.2); WHITE BLOOD COUNT (AUTO) 12.8 K/uL (4.8-10.8)
[2017-01-01 07:00] LABS: ALBUMIN 1.5 g/dL (3.4-4.8); BILIRUBIN,DIRECT 0.4 mg/dL (0.0-0.3); CALCIUM 8.3 mg/dL (8.4-11.0); CREATININE 2.39 mg/dL (0.55-1.30); POTASSIUM 3.7 mmol/L (3.5-5.1); TOTAL BILIRUBIN 0.6 mg/dL (0.0-1.0)
[2017-01-01 07:04] LABS: MEAN CORPUSCULAR VOLUME 92 fL (79.0-98.0)
--- NOTE | 2017-01-01 07:30 | NUR ---
Opening Note Patient stable and relaxing in bed. Receiving breathing treatment per RT, tolerating vent settings. New condom catheter place in PM, no urine output. Call light in reach, bed side rails raised x3.
[2017-01-01 07:59] VITALS: BP_SYST 144
[2017-01-01] MEDS: FERROUS SULFATE 300 MG/5 ML UDC PO SCH ×2 (08:41→21:24)
[2017-01-01] MEDS: levETIRAcetam 500 MG TABLET GT SCH ×2 (08:41→21:24)
[2017-01-01] MEDS: ASCORBIC ACID 500 MG TABLET GT SCH ×2 (08:41→21:24)
[2017-01-01] MEDS: LACTULOSE 20 GM/30 ML UDC GT SCH ×2 (08:41→21:23)
[2017-01-01] MEDS: METOPROLOL SUCCINATE 50 MG TAB.SR.24H (TOPROL XL) PO SCH (08:43)
[2017-01-01] MEDS: amLODIPine BESYLATE 10 MG TABLET GT SCH (08:43)
[2017-01-01] MEDS: LISINOPRIL 20 MG TABLET GT SCH (08:45)
[2017-01-01] MEDS: SEVELAMER HCL 800 MG TABLET GT SCH ×3 (08:49→18:15)
[2017-01-01] MEDS: cefTRIAXone 1 GM in D5W 50 ML IV SCH (08:50)
[2017-01-01] MEDS: HEPARIN SODIUM,PORCINE 5000 UNITS/ML VIAL SUBCUT SCH ×2 (09:03→22:26)
[2017-01-01] MEDS: MUPIROCIN 2% TOPICAL OINTMENT 22 GM TP SCH ×2 (09:11→21:26)
--- NOTE | 2017-01-01 09:29 | NUR ---
Rounds Meds administered. Patient was given oral care and needed suctioning. G tube dressing changed. Positioned for comfort, call light in reach.
[2017-01-01 11:40] VITALS: BP_SYST 139
--- NOTE | 2017-01-01 12:05 | NUR ---
DISCHARGE PLANNING Spoke with Gerardo in admitting at [facility] who was updated on patient plan of care. Gerardo stated will anticipate patient to return back to facility in couple of days. DCP will keep facility informed of possible date of discharge.
--- NOTE | 2017-01-01 14:30 | NUR ---
Case mgt: S/W Vy in lab to check on culture sensitivities on permacath tip showing positive MRSA on 12/27/16--New permacath placement is pending the sensitivity results per Dr. You. Vy indicating they don't do sensitivities on catheter tip but I am asking her to check with manufacturing engineer supervisor on this. EVELYN LOPEZ
--- NOTE | 2017-01-01 14:55 | NUR ---
Case mgt: I called lab back and s/w Hortensia regarding permacath tip sensitivity results--Per Vy Bazan said results are in the computer now (entered @2187)--I called Dr. You and left him message to call pt's nurse to review sensitivity results and need plan of care for permacath placement.
--- NOTE | 2017-01-01 15:20 | NUR ---
Dr You called. Orders received.
--- NOTE | 2017-01-01 16:20 | NUR ---
Called [facility]-Deana Fitzpatrick At [facility], [facility] for patient Sanders. Informed her Dr. You will like to perform 2 procedures.She stated she will let Cass Lainez, [facility], Nurse specialist know and they will reach back to us regarding consents.
[2017-01-01 17:54] VITALS: BP_SYST 147
--- NOTE | 2017-01-01 19:00 | NUR ---
WOUND RE-EVALUATION: Patient received in a [place] Bed with an Isoflex ANGELA mattress with low air loss therapy, awake, alert, and confused. Patient is unable to turn independently. Turng Score is an 11. Intrinsic factors that delay wound healing: Diabetes Mellitus, end-stage renal disease with hemodialysis, chronic respiratory failure. Extrinsic factors that delay wound healing: Decreased mobility. Microbiology: Blood culture 2 in progress. Wound care provided by dayshift nurse. Dressing not removed for assessment, secondary to doing so would decrease wound temperature and retard wound healing. Assessment provided by JESSICA Clark. Wound Assessment: 1. Right Buttock: Multiple wounds, probably self inflected from patient scratching himself, present on admission. Wound beds are 100% pink tissue. No odor, no drainage. 2. Right Buttock, medial to wound 1: Wound, present on admission. Wound bed is 100% pink tissue. No odor, no drainage. Recommend: Cleanse wounds with normal saline. Pat dry. Apply moisture barrier cream to wounds and jocelin-wounds. Cover with foam dressing. Secure with transparent dressings. 3. Left posterior Heel: Chronic unstageable pressure ulcer, present on admission. Wound bed is unseen, has 100% black eschar. Dry, stable. No odor no drainage. 4. Right Heel: Blanchable redness, present on admission. 5. Right Medial Great Toe: Chronic unstageable pressure ulcer, present on admission. Wound bed has 100% black eschar. Dry, stable. No odor no drainage. Recommend continue: No dressings needed. Elevate, offload and float bilateral heels with heel lift boots at all times. Cut out inside of boots if necessary if unable to float heel inside of boots. Also recommend continue: Reposition patient every 2 hours with pillow support and off-load pressure areas with pillows for pressure re-distribution. Offload, elevate and float bilateral heels with pillows. Perform skin care and monitor skin integrity Q shift. Use moisture barrier cream on buttocks and other moisture susceptible areas QID and as needed for soiling. Maintain patient on a low air-loss mattress.
--- NOTE | 2017-01-01 19:13 | NUR ---
DR SHARONDA SCHMITZ FOR AUTHORIZATION OF THE LAB TEST ORDERED BY DR DAY.
[2017-01-01 20:00] VITALS: BP_SYST 144
--- NOTE | 2017-01-01 20:00 | NUR ---
NOTES: observed contact isolation for MRSA nares and blood. pt. awake, but does not follow commands. moves upper extremities a lot. on vent via trach #7 cuffed @ 40 % FIO2 TV 450 PEEP 5 AC rate 20. ON g tube feed of Diabeta source @ 40 cc/hr.IV via left forearm. HOB elevated. condom cath intact. pt. noted to be scratching everywhere maia. his private area, will ask WHEEL SETTER to give him a bath.
--- NOTE | 2017-01-01 20:10 | NUR ---
RT NOTES PER MD ORDER PT BIPAP IS DC AND PT IS PLACED ON RA. RN MASS AWARE. Addendum: 01/01/17 at 2048 by Keenan Guzman RT ENTERED IN ERROR ON WRONG PT.
--- NOTE | 2017-01-01 20:15 | NUR ---
NOTES: Zeus (nursing lift supervisor) called me and informed that Dr. Levine sent him a message that he will not order or authorize the labs that Dr. Knight recommended.
[2017-01-01] MEDS ORDERED: DEXTROSE 50% JECT 50 ML DISP.SYRIN IVP PRN (21:45)
[2017-01-01] MEDS ORDERED: GLUCOSE 15 GM GEL (in 37.5 GM TUBE) PO PRN ×2 (21:45)
--- NOTE | 2017-01-01 21:45 | NUR ---
NOTES: checked BS 69,hypoglycemia protocol initiated.
--- NOTE | 2017-01-01 21:50 | NUR ---
NOTES: D50 1 amp given IVP per protocol. continue on g tube feeding. pt. resting comfortably after hs care, complete sponge bath and linen changed done and repositioned by JACOB Rubi.
[2017-01-01] MEDS ORDERED: DEXTROSE 50% JECT 50 ML DISP.SYRIN ONE (21:53)
--- NOTE | 2017-01-01 22:15 | NUR ---
NOTES: Blood sugar checked 150. will continue to observe.
[2017-01-01] MEDS: DEXTROSE 50% JECT 50 ML DISP.SYRIN IVP PRN (22:18)
[2017-01-02] VITALS (9 sets, daily range): BP systolic 137–150
--- NOTE | 2017-01-02 00:30 | NUR ---
NOTES: pt. been sleeping on high fowlers position. continue to monitor.
--- NOTE | 2017-01-02 02:00 | NUR ---
NOTES: charge nurse Minna informed me that pt. is schedule for permacath vs. AV fistula today , will be NPO. consent not signed yet, will follow up in am with the conservator.
[2017-01-02] MEDS: IPRATROPIUM/ALBUTEROL SULFATE 3 ML AMPUL.NEB INH SCH ×6 (03:02→23:46)
--- NOTE | 2017-01-02 04:15 | NUR ---
NOTES: pt. been sleeping good. breathing fine, no distress noted. remain sinus tachycardia on the monitor @ 106-110/min.
--- NOTE | 2017-01-02 05:00 | NUR ---
NOTES: complete am care done with the help of JACOB Rubi. sacral area reddened, Z jesi applied, rt. buttock with covered dressing. both heel with heel protectors. had small amount of brown stool. rechecked BS 160, turned off feeding for schedule surgery today, no insulin coverage since pt. is NPO.
[2017-01-02] MEDS: metroNIDAZOLE 250 mg/NS 50 ML IV SCH ×3 (05:05→23:39)
--- NOTE | 2017-01-02 06:30 | NUR ---
CLOSING NOTES: no change on vent settings, trach intact and site clean. pt. still sleepy. IVF patent on left forearm with IV antibiotic infusing.G tube clamped. heel protectors in place. HR still @ 108/min. remain on contact isolation. safety measures in place. call light within reach. for further care and observation.
--- NOTE | 2017-01-02 07:20 | NUR ---
endorsed pt. to incoming shift with nurse Hans.
--- NOTE | 2017-01-02 07:35 | NUR ---
AM Rounds Patient resting in bed, awake, alert and oriented x1, nonverbal, reoriented to place, time and event. Patient opens eyes spontaneously and to voice but cannot follow commands, no signs of pain noted, assessment complete, condom catheter in place, draining to gravity, patient is on Trach to vent, vent settings AC 20, TV 450, FIO2 40%, peep of 5, IV site is patent and infusing well, bed in lowest position, three side rails up, bed alarm on, bed close to nurse's station, fall, aspiration, isolation and seizure precautions in place.
[2017-01-02] MEDS: SEVELAMER HCL 800 MG TABLET GT SCH ×3 (08:00→18:12)
[2017-01-02] MEDS: ASCORBIC ACID 500 MG TABLET GT SCH ×2 (08:28→21:52)
[2017-01-02] MEDS: HEPARIN SODIUM,PORCINE 5000 UNITS/ML VIAL SUBCUT SCH ×2 (08:29→21:53)
[2017-01-02] MEDS: FERROUS SULFATE 300 MG/5 ML UDC PO SCH ×2 (08:29→21:51)
[2017-01-02] MEDS: LACTULOSE 20 GM/30 ML UDC GT SCH ×2 (08:29→21:51)
--- NOTE | 2017-01-02 08:35 | NUR ---
Called PO[facility] For procedure consents, will follow up.
[2017-01-02] MEDS: cefTRIAXone 1 GM in D5W 50 ML IV SCH (09:50)
[2017-01-02] MEDS: LISINOPRIL 20 MG TABLET GT SCH (09:54)
[2017-01-02] MEDS: amLODIPine BESYLATE 10 MG TABLET GT SCH (09:54)
[2017-01-02] MEDS: METOPROLOL SUCCINATE 50 MG TAB.SR.24H (TOPROL XL) PO SCH (09:54)
[2017-01-02] MEDS: levETIRAcetam 500 MG TABLET GT SCH ×2 (09:54→21:52)
--- NOTE | 2017-01-02 10:00 | NUR ---
RN Rounds/Medications Patient resting in bed, no signs of pain, no signs of distress, no residual output from G Tube at this time, seizure and blood pressure medications administered per MD orders, repositioned and cleaned the patient with SAUSAGE INSPECTOR at this time, no other needs at this time, bed in lowest position, three side rails up, bed alarm on, bed close to nurse's station, fall, aspiration, seizure and isolation precautions in place.
[2017-01-02] MEDS: MUPIROCIN 2% TOPICAL OINTMENT 22 GM TP SCH ×2 (10:09→21:57)
--- NOTE | 2017-01-02 10:15 | NUR ---
Replaced Condom Catheter due to dislodgement, patient tolerated well.
--- NOTE | 2017-01-02 10:21 | NUR ---
Dr. Vizcaino Here to see the patient, updates given, will follow up with any new orders.
--- NOTE | 2017-01-02 11:01 | NUR ---
[facility]ed [facility] to inform that consents have still not been received, left a voicemail for Cass Lainez, waiting ironing machine operator back, will follow up as needed.
--- NOTE | 2017-01-02 12:33 | NUR ---
RN Rounds/Blood glucose Patient resting in bed, no signs of pain, no signs of distress, blood glucose checked and insulin administered per MD orders, no other needs at this time, bed in lowest position, three side rails up, bed alarm on, bed close to nurse's station, fall, aspiration, isolation and seizure precautions in place.
[2017-01-02] MEDS: INSULIN REGULAR, HUMAN 100 UNITS/ML, 10 ML VIAL (novoLIN R) SUBCUT PRN ×3 (12:40→22:16)
--- NOTE | 2017-01-02 12:47 | NUR ---
Called [facility] Informed that voicemail was left for Cass Lainez, no call back yet, Ms. Pete (POA) stated that she will follow up.
--- NOTE | 2017-01-02 14:48 | NUR ---
RN Rounds Patient resting in bed, eyes closed, breathing is even and unlabored, no distress, IV site is patent and infusing well, IV antibiotics hung and infusing well, no other needs at this time, bed in lowest position, three side rails up, bed alarm on, bed close to nurse's station, fall, aspiration, isolation and seizure precautions in place.
--- NOTE | 2017-01-02 14:48 | NUR ---
Consents Received for permacath/Fistula, consent pending for bone marrow biopsy.
--- NOTE | 2017-01-02 15:35 | NUR ---
Patient off the unit To OR at this time, stable condition.
[2017-01-02] MEDS ORDERED: ASPIRIN 325 MG TABLET (ECOTRIN) PO ONE (17:15)
--- NOTE | 2017-01-02 17:50 | NUR ---
Patient back on the unit Stable condition, AV graft done by Dr. You on the right forearm, NOT ok to use yet for dialysis, informed dialysis nurse to the right chest magdalene cath. Per MD orders ok to resume tube feeding, tube feeding resumed Diabetasource at 40ml/hour, aspiration precautions in place. Dialysis nurse at bedside, patient is tolerating well, right chest magdalene cath dressing changed by dialysis nurse at this time. Blood glucose assessed and insulin coverage given per MD orders, x1 dose of aspirin also given per MD orders at this time, no residual output from G Tube at this time, will continue to monitor. Cannot complete wound care/assessment at this time due to dialysis, will endorse to LALI ruff nurse. Addendum: 01/02/17 at 1757 by Hans Bowser RN Thrill and bruit present on right arm AV graft. NO BP and NO blood draw on right arm sign hung at the head of the bed.
--- NOTE | 2017-01-02 17:55 | NUR ---
1700 Procrit Cannot be given at this time due to dialysis, can be given after dialysis is complete, will endorse to NOC shift nurse.
[2017-01-02] MEDS ORDERED: HEPARIN SODIUM,PORCINE 5000 UNITS/ML VIAL MC ONE (18:15)
--- NOTE | 2017-01-02 18:35 | NUR ---
Closing Note Patient resting in bed, awake, no signs of distress or pain, tolerating dialysis well at this time, all needs met, will endorse report to NOC shift nurse, bed in lowest position, three side rails up, bed alarm on, bed close to nurse's station, fall, aspiration, isolation and seizure precautions in place.
--- NOTE | 2017-01-02 19:35 | NUR ---
INITIAL NOTE Patient resting on the bed. On dialysis at this time. Dialysis nurse at bed side. Patient no s/s of distress or pain noted at this time. Safety measure maintained. Bed in low position, padded side rails up. Call light within reached. On contact isolation precaution. Will continue to monitor.
--- NOTE | 2017-01-02 20:23 | NUR ---
DIALYSIS FINISHED Received the report from dialysis nurse-JESSICA Saldivar. 2600ml of water water wash out, Dong Patient VS stable. Last VS: T=98.0, P=120, B/P=138/85. Patient no acute distress.
--- NOTE | 2017-01-02 20:30 | NUR ---
TOMAS CATHETER DRESSING CHANGED BY DIALYSIS NURSE
[2017-01-02] MEDS ORDERED: VANCOMYCIN HCL 1,000 MG in NS 250 ML IV SCH (21:00)
--- NOTE | 2017-01-02 22:05 | NUR ---
ROUND Patient resting on the bed. No acute distress. Respiration even and unlabored. Trach intact to vent setting as ordered. Skin warm and dry to touch. Condom cath intact, drain gravity with yellow urine. Safety measure maintained. Bed in low position, padded side rails up. Call light within reached. Continue to monitor.
[2017-01-02] MEDS: EPOETIN ALFA 3,000 UNITS/ML VIAL SUBCUT SCH (22:22)
--- NOTE | 2017-01-03 00:02 | NUR ---
ROUND Patient resting on the bed with eyes closed. No acute distress. Trach intact to vent. Safety measure maintained. Bed in low position, padded side rails up, bed alarm on. Call light within reached. Continue to monitor.
--- NOTE | 2017-01-03 02:15 | NUR ---
ROUND Patient resting on the bed with eyes closed. No acute distress. Trach intact to vent. Continue on G-tube feeding. HOB elevated. Safety measure maintained. Bed in low position, padded side rails up, bed alarm on. Call light within reached. Continue to monitor.
[2017-01-03 03:33] VITALS: BP_SYST 141
[2017-01-03] MEDS: IPRATROPIUM/ALBUTEROL SULFATE 3 ML AMPUL.NEB INH SCH ×3 (03:44→20:02)
--- NOTE | 2017-01-03 04:25 | NUR ---
ROUND Patient resting on the bed with eyes closed. No acute distress. Trach intact to vent. Continue on G-tube feeding, tolerated well. No N/V or s/s of aspiration. HOB elevated. Safety measure maintained. Bed in low position, padded side rails up, bed alarm on. Call light within reached. Continue to monitor.
[2017-01-03] MEDS: metroNIDAZOLE 250 mg/NS 50 ML IV SCH ×2 (06:35→14:19)
[2017-01-03 06:46] LABS: ALBUMIN 1.7 g/dL (3.4-4.8); BILIRUBIN,DIRECT 0.4 mg/dL (0.0-0.3); TOTAL BILIRUBIN 0.6 mg/dL (0.0-1.0)
--- NOTE | 2017-01-03 06:50 | NUR ---
CLOSING NOTE Patient resting on the bed. No acute distress. Respiration even and unlabored. Trach intact to vent. G-tube intact, continue on G-tube feeding, tolerated well. No nausea and vomiting, no s/s of aspiration noted. HOB elevated 30-45 degree all the times. IV intact, no redness, no swelling. Reynold cath intact with dressing, no active bleeding noted. Condom cath intact, drain gravity. No seizure activity noted. Continue on contact isolation precaution. All needs met. Hourly rounding during shift. Safety measure maintained. Bed in low position, padded side rails up, bed alarm on. Call light within reached. Will endorse to morning shift nurse.
--- NOTE | 2017-01-03 08:00 | NUR ---
S/W Dr. Pérez informed that bone marrow biopsy consent has not been received, verbalized understanding, and stated that if consent is not received then the procedure will be postponed for now.
[2017-01-03 08:57] VITALS: BP_SYST 143
--- NOTE | 2017-01-03 08:58 | NUR ---
Dr. You Here to see the patient, informed about saturated AV graft dressing, Dr. You assessed the patient, changed AV graft dressing and stated he will put in another suture today.
[2017-01-03] MEDS ORDERED: ASPIRIN 325 MG TABLET (ECOTRIN) PO SCH (09:00)
[2017-01-03] MEDS: HEPARIN SODIUM,PORCINE 5000 UNITS/ML VIAL SUBCUT SCH (09:00)
--- NOTE | 2017-01-03 09:35 | NUR ---
Dr. You Put in one suture at AV graft site to prevent further bleeding, sterile technique used, patient tolerated well.
[2017-01-03] MEDS: FERROUS SULFATE 300 MG/5 ML UDC PO SCH (09:45)
[2017-01-03] MEDS: ASCORBIC ACID 500 MG TABLET GT SCH (09:45)
[2017-01-03] MEDS: LACTULOSE 20 GM/30 ML UDC GT SCH (09:45)
[2017-01-03] MEDS: levETIRAcetam 500 MG TABLET GT SCH (09:45)
[2017-01-03] MEDS: METOPROLOL SUCCINATE 50 MG TAB.SR.24H (TOPROL XL) PO SCH (09:46)
[2017-01-03] MEDS: SEVELAMER HCL 800 MG TABLET GT SCH ×3 (09:46→17:30)
[2017-01-03] MEDS: LISINOPRIL 20 MG TABLET GT SCH (09:46)
[2017-01-03] MEDS: cefTRIAXone 1 GM in D5W 50 ML IV SCH (09:47)
[2017-01-03] MEDS: amLODIPine BESYLATE 10 MG TABLET GT SCH (09:47)
[2017-01-03] MEDS: MUPIROCIN 2% TOPICAL OINTMENT 22 GM TP SCH (09:49)
--- NOTE | 2017-01-03 09:50 | NUR ---
RN Rounds/Medications Patient resting in bed, no signs of pain, no signs of distress, no residual output from G Tube at this time, tolerated G Tube medications well, repositioned and cleaned the patient with POWERHOUSE ATTENDANT at this time, no other needs at this time, bed in lowest position, three side rails up, bed alarm on, bed close to nurse's station, fall, aspiration, seizure and isolation precautions in place.
--- NOTE | 2017-01-03 10:14 | NUR ---
Dr. Vizcaino Rounds Here to see the patient, updates given, f/u with consent for bone marrow biopsy.
--- NOTE | 2017-01-03 10:14 | NUR ---
[facility] voicemail for Cyndi Lainez regarding Bone Marrow Biopsy consent, will follow up. Addendum: 01/03/17 at 1538 by Hans Bowser RN [phone] ext [phone]
--- NOTE | 2017-01-03 11:30 | NUR ---
RN rounds/Blood glucose/Medication Patient resting in bed, awake, no signs of pain, no signs of distress, blood glucose assessed and insulin coverage given per MD orders, no residual output from G Tube, tolerated G Tube medication administration well, no other needs at this time, bed in lowest position, three side rails up, bed alarm on, bed close to nurse's station, fall, aspiration, seizure and isolation precautions in place.
[2017-01-03] MEDS: INSULIN REGULAR, HUMAN 100 UNITS/ML, 10 ML VIAL (novoLIN R) SUBCUT PRN (11:31)
[2017-01-03 12:38] VITALS: BP_SYST 120
--- NOTE | 2017-01-03 13:06 | NUR ---
RN Rounds Patient resting in bed, awake, no signs of pain, no signs of distress, bed in lowest position, three side rails up, bed alarm on, bed close to nurse's station, fall, aspiration, isolation, seizure precautions in place.
--- NOTE | 2017-01-03 13:10 | NUR ---
[facility]ed [facility] Left voicemail for Cyndi Lainez regarding Bone Marrow Biopsy consent, will follow up.
--- NOTE | 2017-01-03 13:10 | NUR ---
Called TOSIN Patel left for Deana Fitzpatrick, to inform that voicemail was left for Cass Lainez, no call back yet, will continue to follow up.
--- NOTE | 2017-01-03 14:13 | NUR ---
Called RT to inform of vent settings change, will follow up. Addendum: 01/03/17 at 1458 by Hans Bowser RN [id number], vent settings changed to AC 16 from AC 20, tolerating well at this time.
--- NOTE | 2017-01-03 14:58 | NUR ---
RN Rounds Patient resting in bed, eyes closed, breathing is even and unlabored, no signs of distress, tolerating new vent settings well, bed in lowest position, three side rails up, bed alarm on, bed close to nurse's station, fall, aspiration, seizure and isolation precautions in place.
--- NOTE | 2017-01-03 15:20 | NUR ---
S/W TOSIN Fitzpatrick stated that Cyndi Lainez is out of office for the weekend already, Ms. Fitzpatrick to send Cyndi Lainez an email regarding the urgent need for Bone Marrow Biospy consent.
--- NOTE | 2017-01-03 15:38 | NUR ---
Paged Dr. Pérez to inform that Bone Marrow Biopsy consent has not been received and may not be received this weekend.
--- NOTE | 2017-01-03 16:00 | NUR ---
DC planning: Discussed dc plan w/Dr. Vizcaino, AIRCRAFT DESIGNER Dr. Catalan, Dr. Humphries re: plan for BM bx due to waiting for consent from [facility] next week. Plan is to get additional blood work (Dr. Vizcaino will order at the SNF), when pt gets back to SNF to determine need for bm bx. Dr. Vizcaino agreeable for discharge back to [facility]--Clara Verma, WALTER, contacted Gerardo at [facility]--pt is trach t-bar. Rec'd order for dc back to SNF--Isolation for MRSA perma cath tip and hx MRSA in BC but new BC neg after 48 hrs. Nurse Hans made aware of discharge order back to [facility]. SW will arrange [facility] ambulance once bed given by [facility]--EVELYN LOPEZ
--- NOTE | 2017-01-03 16:12 | NUR ---
Discharge Planning: COUNTER SERVER spoke to [facility]ter at [facility] ([phone]); pt will be going to room 111A. [facility] has faxed updated information to S[facility]. [facility] has arranged transportation with [facility] ([phone]); [facility] transport has been arranged for 8:00pm. Packet has been placed at nurses station.
[2017-01-03 16:14] VITALS: BP_SYST 119
--- NOTE | 2017-01-03 16:25 | NUR ---
WOUND RE-EVALUATION: Patient received in a [place] Bed with an Isoflex ANGELA mattress with low air loss therapy, awake, slow to respond, and confused. Patient is unable to turn independently. Trung Score is a 13. Intrinsic factors that delay wound healing: Diabetes Mellitus, end-stage renal disease with hemodialysis, chronic respiratory failure. Extrinsic factors that delay wound healing: Decreased mobility. Microbiology: Blood culture 2 in progress. Wound Assessment: 1. Right Buttock: Multiple wounds, probably self inflected from patient scratching himself, present on admission. Wound beds are 100% pink tissue. No odor, no drainage. Appears to have resolved. 2. Right Buttock, medial to wound 1: Wound, present on admission. Wound bed is 100% pink tissue. No odor, no drainage. Appears to have resolved. Recommend continue: Cleanse wounds with normal saline. Pat dry. Apply moisture barrier cream to wounds and jocelin-wounds. Cover with foam dressing. Secure with transparent dressings. 3. Left posterior Heel: Chronic unstageable pressure ulcer, present on admission. Wound bed is unseen, has 100% black eschar. Dry, stable. No odor no drainage. 4. Right Heel: Blanchable redness, present on admission. 5. Right Medial Great Toe: Chronic unstageable pressure ulcer, present on admission. Wound bed has 100% black eschar. Dry, stable. No odor no drainage. Recommend continue: No dressings needed. Elevate, offload and float bilateral heels with heel lift boots at all times. Cut out inside of boots if necessary if unable to float heel inside of boots. Also recommend continue: Reposition patient every 2 hours with pillow support and off-load pressure areas with pillows for pressure re-distribution. Offload, elevate and float bilateral heels with pillows. Perform skin care and monitor skin integrity Q shift. Use moisture barrier cream on buttocks and other moisture susceptible areas QID and as needed for soiling. Maintain patient on a low air-loss mattress.
--- NOTE | 2017-01-03 16:30 | NUR ---
Wound care 1. Right Buttock: Multiple wounds, probably self inflected from patient scratching himself, present on admission. Wound beds are 100% pink tissue. No odor, no drainage. Appears to have resolved. 2. Right Buttock, medial to wound 1: Wound, present on admission. Wound bed is 100% pink tissue. No odor, no drainage. Appears to have resolved. Cleansed wounds with normal saline. Patted dry. Applied moisture barrier cream to wounds and jocelin-wounds. Covered with foam dressing. 3. Left posterior Heel: Chronic unstageable pressure ulcer, present on admission. Wound bed is unseen, has 100% black eschar. Dry, stable. No odor no drainage. 4. Right Heel: Blanchable redness, present on admission. 5. Right Medial Great Toe: Chronic unstageable pressure ulcer, present on admission. Wound bed has 100% black eschar. Dry, stable. No odor no drainage. Elevating, offloading and floating bilateral heels with heel lift boots at all times. Repositioning patient every 2 hours with pillow support and off-loading pressure areas with pillows for pressure re-distribution. Offloading, elevating and floating bilateral heels with pillows. Performing skin care and monitor skin integrity Q shift. Using moisture barrier cream on buttocks and other moisture susceptible areas QID and as needed for soiling. Maintaining patient on a low air-loss mattress.
[2017-01-03] MEDS: DEXTROSE 50% JECT 50 ML DISP.SYRIN IVP PRN (17:34)
--- NOTE | 2017-01-03 17:39 | NUR ---
Blood Glucose assessed to be 61 at this time, apple juice given and D50 given IVP at this time, will reassess blood glucose in 15 minutes. Patient has no s/s of hypoglycemia at this time, resting in bed. Addendum: 01/03/17 at 1750 by Hans Bowser RN reassessment: 173
[2017-01-03 18:13] VITALS: BP_SYST 119
[2017-01-03] MEDS ORDERED: ROCPM1 IV (18:22)
[2017-01-03] MEDS ORDERED: FLA250 IVPB (18:22)
[2017-01-03] MEDS ORDERED: VANC125C10 IVPB (18:23)
--- NOTE | 2017-01-03 18:36 | NUR ---
Report Given To Noa LOPEZ at [facility], at 1835.
--- NOTE | 2017-01-03 18:50 | NUR ---
Closing note Patient resting in bed, eyes closed, breathing is even and unlabored, no signs of distress, tolerating vent settings well, bed in lowest position, three side rails up, bed alarm on, bed close to nurse's station, fall, aspiration, seizure and isolation precautions in place, will endorse report to NOC shift nurse.
[2017-01-03 20:01] VITALS: BP_SYST 133
--- NOTE | 2017-01-03 20:39 | NUR ---
AMBULANCE CALLED & STATED Will be about a 40 minute delay for pick - up .
--- NOTE | 2017-01-03 20:40 | NUR ---
Patient awake Trach to Ventilator suction up right position minimal ventilator alarming noted assist for position change chest movement symmetrical also unlabored skin dry warm HOB elevated assist as needed / .
--- NOTE | 2017-01-03 21:10 | NUR ---
PHONED [facility] , AND ACCEPTING MD WILL BE DR MOUSTAPHA SOFIA .
--- NOTE | 2017-01-03 21:15 | NUR ---
Patient discharge to [facility] , VIA [facility] .
== END 2017-01-03 21:35 | DRG 853 ==
LOC: SED 19:13 → STU 22:56
PROVIDERS: ADMIT Family Medicine; ATTEND Family Medicine
PROC: 5A1955Z Respiratory Ventilation, Greater than 96 Consecutive Hours (ICD-10-PCS; principal; 2016-12-20)
PROC: 5A1D60Z (ICD-10-PCS; 2016-12-24)
PROC: 05PYX3Z Removal of Infusion Device from Upper Vein, External Approach (ICD-10-PCS; 2016-12-27)
PROC: 02HV33Z Insertion of Infusion Device into Superior Vena Cava, Percutaneous Approach (ICD-10-PCS; 2016-12-31)
PROC: B548ZZA Ultrasonography of Superior Vena Cava, Guidance (ICD-10-PCS; 2016-12-31)
PROC: 03170KD Bypass Right Brachial Artery to Upper Arm Vein with Nonautologous Tissue Substitute, Open Approach (ICD-10-PCS; 2017-01-01)
PROC: 30233N1 Transfusion of Nonautologous Red Blood Cells into Peripheral Vein, Percutaneous Approach (ICD-10-PCS; 2017-01-01)
DX: A41.02 Sepsis due to Methicillin resistant Staphylococcus aureus (principal); J96.20 Acute and chronic respiratory failure, unspecified whether with hypoxia or hypercapnia; J69.0 Pneumonitis due to inhalation of food and vomit; G93.41 Metabolic encephalopathy; G82.50 Quadriplegia, unspecified; E43 Unspecified severe protein-calorie malnutrition; J90 Pleural effusion, not elsewhere classified; N17.9 Acute kidney failure, unspecified; I12.0 Hypertensive chronic kidney disease with stage 5 chronic kidney disease or end stage renal disease; N18.6 End stage renal disease; Z99.11 Dependence on respirator [ventilator] status; N39.0 Urinary tract infection, site not specified; T80.211A Bloodstream infection due to central venous catheter, initial encounter; C94.6 Myelodysplastic disease, not elsewhere classified; L89.90 Pressure ulcer of unspecified site, unspecified stage; R16.2 Hepatomegaly with splenomegaly, not elsewhere classified; R74.8 Abnormal levels of other serum enzymes; B96.20 Unspecified Escherichia coli [E. coli] as the cause of diseases classified elsewhere; D47.3 Essential (hemorrhagic) thrombocythemia; E80.6 Other disorders of bilirubin metabolism; E11.40 Type 2 diabetes mellitus with diabetic neuropathy, unspecified; Y92.89 Other specified places as the place of occurrence of the external cause; Z93.0 Tracheostomy status; G40.909 Epilepsy, unspecified, not intractable, without status epilepticus; D63.1 Anemia in chronic kidney disease; E11.22 Type 2 diabetes mellitus with diabetic chronic kidney disease; E87.6 Hypokalemia; Y84.8 Other medical procedures as the cause of abnormal reaction of the patient, or of later complication, without mention of misadventure at the time of the procedure; Z86.73 Personal history of transient ischemic attack (TIA), and cerebral infarction without residual deficits; Z93.1 Gastrostomy status; Z99.2 Dependence on renal dialysis; Z79.899 Other long term (current) drug therapy; Z68.24 Body mass index [BMI] 24.0-24.9, adult
CPT/HCPCS: 36415; 36600; 71010; 76700-TC; 80048; 80053; 80061; 80074; 80076; 80202-TC; 81000-TC; 82103; 82105; 82150-TC; 82248-TC; 82390; 82550-TC; 82607; 82728; 82803-TC; 82962; 82977-TC; 83036; 83516; 83540-TC; 83550-TC; 83605; 83615-TC; 83690-TC; 83735-TC; 83880; 84075; 84080; 84100-TC; 84436; 84439; 84443-TC; 84479; 84484; 85007; 85025; 85027; 85044-TC; 85610-TC; 85730-TC; 86038; 86376; 86706; 86803; 86886; 86900; 86901; 86920; 87040-TC; 87070-TC; 87081; 87086; 87186-TC; 87340; 90935; 90937; 93005; 93306; 93923; 93970; 94002; 94003; 94640; 94760; 96361; 96365; 96366; 96367; 99285; C1751; J0696; J0878; J0885; J1644; J1815; J2001; J2270; J2543; J3370; J3490; J7030; J7040; J7050; J7060; P9021; Q9964